=== PATIENT | male | born 1955 | race Caucasian/White ===

== ENCOUNTER 2017-11-17 22:56 | Inpatient (IN) | payer OTHER ==
[~2017-11-17] VITALS: Ht 170.2 cm; Wt 105.8 kg
[~2017-11-17 22:56] MED LIST: ADULT LOW DOSE81 MG PO; ATORVASTATIN CA80 MG PO; CIPRO500 MG PO; FENOFIBRATE134 MG PO; FLAGYL250 MG PO; FLOMAX0.4 MG PO; GLIMEPIRIDE2 MG PO; GLUCOPHAGE500 MG PO; LIPITOR40 MG PO; LISINOPRIL5 MG PO; OXYCODON-ACETA1 EAC2 PO
--- NOTE | 2017-11-18 04:14 | NUR ---
PATIENT ARRIVES TO ROOM 128 VIA STRETCHER FROM ER AT 0300. PT ARRIVES IN COMPANY WITH HIS AND DAUGHTER. PT ABLE TO STAND AND MOVE OVER TO BED WITHOUT DIFFICULTY. PT IS CURRENTLY IN AFLUTTER, HR 110-120s, AND ON A DILTIAZEM GTT AT 15 MG/HR. PT HAS NO KNOWN HISTORY OF AFIB/FLUTTER. DISCUSSED WITH PATIENT AT LENGTH WHAT THIS MEANS AND POTENTIAL REASONS FOR HIM HAVING THIS ARRHYTHMIA AT THIS TIME. PT'S ABDOMINAL AREA AND RIGHT GROIN ASSESSED AND NOTIED TO BE BRIGHT RED ACROSS RIGHT SIDE AND EVEN OVER TO LEFT SIDE OF ABDOMEN. HARD, PALPABLE MASS LIKE AREA FELT IN THE LOW LATERAL RIGHT ABDOMINAL AREA. IN PT'S GROIN AREA, OLD SCAR FROM PREVIOUS SURGERIES NOTED AND IN THE MIDDLE OF SCAR, A SMALL, ERASER TIP SIZE AREA NOTED TO BE OPEN WITH PURULENT DRAINAGE. PT STATES THIS IS A NEW FINDING AND THAT AREA WAS CLOSED THIS AM. A SMALL BLACK HOLE LIKE STRUCTURE NOTED IN THE MIDDLE OF THE OPENING, ALMOST LIKE A TRACT. PT STATES HE HAS HAD DRAINAGE OUT OF THIS AREA BEFORE, AND THEY KEEP AN EYE ON THIS AT HOME. PT ALSO NOTED TO BE RED IN HIS FACE AND FLUSHED. TEMP 99.4 AT THIS TIME. IVF STARTED AT 125 ML/HR. PT HAS REC'D IV ZOSYN AND HAS HAD BLOOD CULTURES X2 DRAWN IN ER. PRN DILAUDID IF NEEDED. PT NOW RESTING AND SLEEPING ON COUCH. PT VOIDS 400 ML YELLOW URINE. CONTINUE TO MONITOR.
--- NOTE | 2017-11-18 06:23 | NUR ---
DR. PARK IN ROOM TO SEE PATIENT. RIGHT WOUND CULTURED AND SENT TO LAB. REPEAT LABS DRAWN WELL. PT VERY PLEASANT AND TALKATIVE WITH DOCTOR. DILT GTT CONTINUES AT 15 MG/HR. PT REMAINS IN AFLUTTER.
--- NOTE | 2017-11-18 08:03 | NUR ---
PT AWAKE AND ALERT X4 LAYING IN BED WATCHING TV WITH AT BEDSIDE. PT DENIES PAIN, NAUSEA, AND SOB AT THIS TIME. IV SITES INTACT, NO REDNESS OR SWELLING NOTED, FLUIDS INFUSING EASILY. PT DILTIAZEM DRIP AT 15 MG/HR AT THIS TIME. VITALS WNL, RHYTHM IS A FLUTTER. PT DENIES ANY PALPITTIONS OR FEELINGS OF FLUTTERING IN CHEST.
--- NOTE | 2017-11-18 09:00 | NUR ---
PT DOING WELL. AM CARE. CHANGED LINENS
--- NOTE | 2017-11-18 09:24 | NUR ---
PT SITTING UP AT THE SIDE OF THE BED, DENIES PAIN, NAUSEA, AND SOB. PT ALERT AND ORIENTED X4. CALL LIGHT WITHIN REACH.
--- NOTE | 2017-11-18 10:30 | NUR ---
ENDY WIPEDOWN COMPLETED, CLEAN GOWN AND LINENS IN PLACE.
--- NOTE | 2017-11-18 11:00 | NUR ---
GAVE PT A SUGICAL WIPE DOWN.
--- NOTE | 2017-11-18 11:03 | NUR ---
PT LEFT CCU WITH HEAD OF DRAMA SRUTHI. IV DILTIAZEM RUNNING AT 11MG/HR PER THIRD RAIL INSTALLER CARMITA.
--- NOTE | 2017-11-18 12:21 | NUR ---
11/18/17 1221 Shahriar Martinez 1208 PT ARRIVED TO CCU/PACU AWAKE BUT SLIGHTLY DROWSY. PT TALKING WITH STAFF. IV LR RUNNING FREE. PER LUCAS MEJIA DILTIAZAM DISCONTINUED IN OR AT 1155 FOR STABLE HR. CURRENT HR 78, PT DENIES CHEST PAIN AND SOB. DENIES PAIN AND NAUSEA. DRESSING CDI, WOUND VAC IN PLACE.
--- NOTE | 2017-11-18 12:33 | CONS ---
[facility] [address], [place] [address] Signed DATE OF CONSULTATION: 11/18/2017 CONSULTATION REPORT CONSULTING PHYSICIAN: Esdras Santoyo MD PROBLEM: Recurrent right inguinal abscess. HISTORY OF PRESENT ILLNESS: This 62-year-old white man is from [place], [place] and is a patient of Dr. Robert Thompson. He is known to me having undergone operation on June 24, 2016 for what was thought to be incarcerated recurrent right inguinal hernia, but which proved to be in fact a large abscess of the right groin. He had undergone a right inguinal hernia repair by Dr. Bo Lobato two years prior to that with implantation of Prolene mesh. At the time of the operation I performed in 2015, he had infected and non-secured Prolene mesh, which was completely explanted. He had undergone radiation therapy for prostate carcinoma in [place], [place] by Dr. Magnus Amato with implantation of radioactive seeds for prostate cancer and at that time had a PSA of less than 1.0. After explantation of the mesh, wound care involved dominantly a wound VAC device, which allowed for healing. I saw him in followup and he had a slight amount of wound separation, but ultimately appeared to have healed well. The patient tells me he has had episodic minimal drainage from the incision over time, however. He recently began having swelling and pain once again. He presented to the emergency room at approximately 11:30 last night, was evaluated by Dr. Valles. He had 2 days of pain in the right groin with an erythematous lump noted. He incidentally was noted to have atrial flutter with heart rate into the 140s. A CT scan was performed, which showed a deep subcutaneous right lower abdominal fluid collection abutting the abdominal wall, but no soft tissue gas. There is a small fat containing right groin hernia without evidence of strangulation as well as incidental findings of gallstones and multiple cysts of the liver. He also had diverticula without diverticulitis. Given his atrial fibrillation and need for diltiazem for rate control, he was admitted to the service of Dr. Gupta and taken to the intensive care unit. It shows no evidence of myocardial infarction or other abnormality. His white count at presentation was only 9.1 with hematocrit of 39.5 with a platelet count 264,000. Chem profile was normal. Electronically Signed By: ESDRAS SANTOYO MD 11/18/17 1233 PATIENT NAME: DREW WHEATLEY CONSULTATION DATE OF : 59 REPORT #: [id number] PHYSICIAN: ESDRAS SANTOYO MD PCP: ROBERT THOMPSON MD REPORT IS CONFIDENTIAL AND NOT TO BE RELEASED WITHOUT AUTHORIZATION [facility] [address] [place], [place] [address] Signed The glucose was elevated to 144. Liver enzymes are normal. Troponin is less than 0.010. Coag studies were normal with an INR of 0.9, and urinalysis, which was normal. He did have blood/urine glucose of 1000, however. At present, the patient feels reasonably well. He has mild pain in the right groin area, actually lateral and superior to the previous incision. He has no complaints of nausea or dizziness. SOCIAL HISTORY: Lives in [facility]. He is accompanied by his . 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 PHYSICAL EXAMINATION: GENERAL: A pleasant white man, who is obese, but alert and oriented without sign of systemic toxicity. VITAL SIGNS: Temperature is 98.4, pulse 78, blood pressure 117/53. He is on room air and saturations are 92%. NECK: Trachea is midline. He has no jugular venous distention. HEART: He has no tachypnea. Heart rate is currently 82 and to me looks to be regular consistent with sinus rhythm. ABDOMEN: Soft and obese. In the right lower quadrant in the area superior and lateral to previous inguinal incision is erythematous skin cellulitic changes and tenderness. I detect no sign of necessitation of the wound. The genitalia are normal. CT scan is examined showing multiple cysts of the liver. Spleen is normal as is the stomach. There were multiple gallstones within the gallbladder as previously noted. Examination of the soft tissue of the abdominal wall shows a fluid collection and surrounding inflammatory changes of the soft tissue. The process appears to be outside the muscular layer. I do not see signs of continuity to internal organs, specifically the colon. ASSESSMENT: He has an abdominal wall abscess, which appears to be a recurrent problem from abscess and infected mesh from May 2016. I am quite certain that all of the mesh was explanted at the time of his initial operation in 2015. One wonders if there is some other foreign body to incite such an infection or perhaps residual bile burden (bile film) of the wound itself. His atrial flutter is now controlled. Thanks to the careful management of Dr. Gupta and he maintains a diltiazem drip at 15 mg an hour. I believe he is safe to take the operation to allow for drainage of the abscess. Indeed, the inflammatory process and abscess may have a lot to do with the onset of this arrhythmia. I have reviewed this with Dr. Gupta, who concurs. We will plan for operative management this morning. He has already been started on Zosyn (piperacillin). The risks of bleeding, infection, need for laparotomy, wound Electronically Signed By: ESDRAS SANTOYO MD 11/18/17 1233 PATIENT NAME: DREW WHEATLEY CONSULTATION DATE OF : 59 REPORT #: [id number] PHYSICIAN: ESDRAS SANTOYO MD PCP: ROBERT THOMPSON MD REPORT IS CONFIDENTIAL AND NOT TO BE RELEASED WITHOUT AUTHORIZATION [facility] [address] [facility] [place] [address] Signed closure, and of course recurrent problem reviewed with the patient and his . They understand and wished to proceed. MD SRIDHAR Cornell/MODL /[id number] cc: MD Robert Marrero MD Andrew L Bower, MD Copies: BORIS GUPTA MD, DANIEL C MD BOWER, ANDREW L MD ~ Electronically Signed By: ESDRAS SANTOYO MD 11/18/17 1233 PATIENT NAME: DREW WHEATLEY CONSULTATION DATE OF : 59 REPORT #: [id number] PHYSICIAN: ESDRAS SANTOYO MD PCP: ROBERT THOMPSON MD REPORT IS CONFIDENTIAL AND NOT TO BE RELEASED WITHOUT AUTHORIZATION
--- NOTE | 2017-11-18 12:53 | NUR ---
REPORT RECEIVED FROM PACU. PT AWAKE AND TALKING WITH FAMILY MEMBERS IN ROOM. VITAL SIGNS COMPLETED. PT STATES ABD SURGICAL DISCOMFORT "A DULL ACHE".
--- NOTE | 2017-11-18 13:24 | NUR ---
MIRELA FROM PHARMACY HERE TO TALK WITH PT ABOUT HOME MEDS. FAMILY IN ROOM.
[2017-11-18] MEDS ORDERED: FIBER500 MG PO (13:54)
--- NOTE | 2017-11-18 13:55 | NUR ---
Medications reconciled with patient interview. Per patient, the lisinopril is for renal protection, not blood pressure control
--- NOTE | 2017-11-18 14:15 | NUR ---
IV SITE INTACT, NO REDNESS OR SWELLING NOTED, PT DENIES PAIN AT THE SITE, FLUIDS INFUSE EASILY. PT C/O 3/10 DULL PAIN IN RT LOW QUAD OF ABD, 600 MG PO MOTRIN GIVEN. PT DENIES SOB AND NAUSEA. OMER WATER WELL. PT HAS FAMILY AND FRIENDS IN AT THE BEDSIDE VISITING. PT ALERT AND ORIENTED X4. HR STILL A-FLUTTER, RATE IS 70'S-90'S. WOUND VAC IN PLACE, DRESSING INTACT, SUCTION INTACT.
--- NOTE | 2017-11-18 18:00 | NUR ---
20 GAUGE IV STARTED IN RT FOREARM BY GEMA CRESPO. PT OMER WELL. PT ALERT AND ORIENTED X4, DENIES PAIN, NAUSEA, AND SOB.
--- NOTE | 2017-11-18 18:20 | NUR ---
DILTIAZEM DRIP RESTARTED AT 5MG/HR. PT ALERT AND ORIENTED X4. PT DENIES PAIN, NAUSEA, AND SOB.
--- NOTE | 2017-11-18 20:00 | NUR ---
SHIFT REPORT RECEIVED FROM CHERIE NIEVES. PT SLEEPING IN BED, AT BEDSIDE. CALLED AND SPOKE VIGNESH DR. PARK TO UPDATE HER THAT THE CADIZEM DIP WAS TURNED ON AT 1820. ALSO UPDATED HER THAT PT IS EATING AND RECEIVED ORDERS TO CHANGE ACCUCHECKS AND SLIDING SCALE FROM Q6 HOURS TO ACHS.
--- NOTE | 2017-11-18 20:30 | NUR ---
ASSESSMENT COMPLETED. PT IS ALERT/ORIENTED, PT'S AND DAUGHTER ARE AT BEDSIDE. REPORTS 4/10 PAIN IN RLQ WITH MOVEMENT, 600MG PO MOTRIN ADMINISTERED. ALERT/ORIENTED. LUNGS CLEAR, 2L O2 VIA NC. HR IREGULAR, REMAINS IN A.FLUTTER, HR 75-90'S, CARDIZEM DRIP CONTINUES AT 5MG/HR. BOWEL TONES ACTIVE, DENIES NAUSEA. SURGICAL SITE TO RLQ HAS WOUND VAC IN PLACE, DRESSING APPEARS INTACT, NO LEAKS NOTED, SCANT AMOUNT OF SEROSANGUINOUS DRAINAGE NOTED IN TUBING. CB, 1 UNIT SLIDING SCALE ADMINISTERED. SKIN APPEARS REDDEDNED FROM ABDOMEN UP TRUNK AND ON NECK AND FACE. IV'S PATENT, INFUSING WNL. PT DENIES NEEDS AT THIS TIME, WILL CONTINUE TO MONITOR.
--- NOTE | 2017-11-18 22:10 | NUR ---
IN TO START ZOSYN INFUSION, PT UP TO SIDE OF BED TO VOID USING URINAL. DENIES PAIN. WILL CONTINUE TO MONITOR.
--- NOTE | 2017-11-18 23:43 | NUR ---
PT'S SPO2 DESATURATED DOWN TO LOW 50'S WHILE SLEEPING, PT WAS HAVING APNIC EPISODE FOLLOWED BY LARGE GASP. WOKE PT UP AND ENCOURAGED HIM TO TAKE SOME DEEP BREATHS. SATURATIONS QUICKLY RETURNED TO HIGH 90'S. PT NOW UP TO VOID. WILL CONTINUE TO MONITOR.
--- NOTE | 2017-11-19 00:15 | NUR ---
ASSESSMENT COMPLETED, PT WOKE EASILY WHEN SPOKEN TO. DENIES PAIN AND NAUSEA. LUNGS REMAIN CLEAR, 2L O2 IN PLACE. HR REMAINS IRREGULAR RATE 80S-90S. BOWEL TONES ACTIVE. SURGICAL SITE DRESSING REMAINS INTACT WITH WOUND VAC IN PLACE, NO LEAKS NOTED, DRAINING SCANT AMOUNT OF SEROSANGUINOUS FLUID. IVF INFUSING WNL. PT DENIES NEEDS AT THIS TIME, WILL CONTINUE TO MONITOR.
--- NOTE | 2017-11-19 01:52 | NUR ---
PT SLEEPING, NO APPRENT DISTRESS. RESPIRATIONS EVEN AND UNLABORED, RR:14, SPO2: 100% ON 2L. HR:80S-90S. WILL CONINUE TO MONITOR.
--- NOTE | 2017-11-19 02:45 | NUR ---
PT SLEEPING AT THIS TIME, NO APPARENT DISTRESS. RESPIRATIONS ARE EVEN AND UNLABORED, RR:17, SPO2:100% ON 2L. HR: 80S-90S. WILL ALLOW FOR REST AND CONTINUE TO MONITOR.
--- NOTE | 2017-11-19 03:11 | NUR ---
PT HAD ANOTHER EPISODE WHERE HIS SATURATIONS DROPPED TO 45-50% BRIEFLY, THEN WITHIN A FEW SECONDS STARTED RETURNING INTO THE 90S. HR INCREASES TO 120-130 WHEN THIS HAPPENS AND THEN RETURNS TO 80S-90S AFTER.
--- NOTE | 2017-11-19 04:28 | NUR ---
PT SLEEPING, NO APPARENT DISRESS. RESPIRATIONS EVEN AND UNLABORED, RR:16 SPO2: 100% ON 2L. HR REMAINS IRREGULAR, HR:80-90S AT REST. BOWEL TONES ACTIVE. DRESSING TO RLQ REMAINS INTACT, NO LEAK NOTED IN WOUND VAC, DRAINAGE REMAINS SCANT AND SEROSANGUINOUS. IVF INFUSING WNL. WILL CONTINUE TO MONITOR.
--- NOTE | 2017-11-19 05:50 | NUR ---
IN TO HANG NEW BAG OF FLUIDS AND START ZOSYN INFUSION. PT SLEEPING, NO APPARENT DISTRESS. RESPIRATIONS EVEN AND UNLABORED, RR:16. WILL CONTINUE TO MONITOR.
--- NOTE | 2017-11-19 07:25 | EKG ---
[facility] [address] [facility] [place] [address] Signed Atrial flutter with variable AV block Nonspecific ST abnormality Abnormal ECG When compared with ECG of 17-NOV-2017 23:25, (Unconfirmed) Vent. rate has decreased BY [address] less elevated in Inferior leads Confirmed by BORIS PARK MD ([id number]) on 11/19/2017 7:25:46 AM Electronically Signed By: BORIS PARK MD 11/19/17 0725 PATIENT NAME: DREW WHEATLEY Electrocardiogram DATE OF : 59 PHYSICIAN: BORIS PARK MD REPORT #: [id number] REPORT IS CONFIDENTIAL AND NOT TO BE RELEASED WITHOUT AUTHORIZATION
--- NOTE | 2017-11-19 07:25 | EKG ---
[facility] [address] [facility] [place] [address] Signed Atrial flutter with 2:[address] elevation, consider inferior injury or acute infarct ACUTE [place] / STEMI Consider right ventricular involvement in acute inferior infarct Abnormal ECG When compared with ECG of 21-JUN-2016 18:24, Significant changes have occurred Confirmed by BORIS PARK MD ([id number]) on 11/19/2017 7:25:37 AM Electronically Signed By: BORIS PARK MD 11/19/17 0725 PATIENT NAME: DREW WHEATLEY Electrocardiogram DATE OF : 59 PHYSICIAN: BORIS PARK MD REPORT #: [id number] REPORT IS CONFIDENTIAL AND NOT TO BE RELEASED WITHOUT AUTHORIZATION
--- NOTE | 2017-11-19 08:02 | NUR ---
PT AWAKE AND ALERT SITTING UP IN BED VISITING WITH FAMILY AT BEDSIDE. PT DENIES PAIN, NAUSEA, AND SOB AT THIS TIME. PT ALERT AND ORIENTED X4. DILTIAZEM DRIP AT 5 MG/HR, HR STILL A-FLUTTER, RATE CONTROLED. ALL OTHER VITALS WNL.
--- NOTE | 2017-11-19 09:16 | NUR ---
DILTIAZEM DRIP TURNED OFF, PO DILTIAZEM GIVEN.
--- NOTE | 2017-11-19 09:41 | NUR ---
PT AMBULATED TO THE BATHROOM WITH STANDBY ASSIST. PT OMER AMBULATION WELL. ABLE TO BRUSH TEETH, WASH FACE, AND HAVE A BM. PT GOWN AND BED LINENS CHANGED. PT DENIES PAIN, NAUSEA, AND SOB AT THIS TIME, ALERT AND ORIENTED X4.
--- NOTE | 2017-11-19 10:50 | NUR ---
PT LAYING IN BED WATCHING TV, SPOUSE IS AT THE BEDSIDE. PT DENIES PAIN, NAUSEA, AND SOB AT THIS TIME. PT ALERT AND ORIENTED X4.
--- NOTE | 2017-11-19 12:05 | NUR ---
PT ABLE TO EAT 100% OF LUNCH. DENIES PAIN, NAUSEA, AND SOB AT THIS TIME. PT SITTING UP AT THE SIDE OF THE BED ALERT AND ORIENTED X4. IV SITES INTACT, NO REDNESS OR SWELLING NOTE, FLUIDS AND FLUSH INFUSE EASILY. SPOUSE AT THE BEDSIDE, OFFERED CAREGIVER TRAY FOR LUNCH AND BREAKFAST SHE REFUSED.
--- NOTE | 2017-11-19 13:50 | NUR ---
PT UP TO AMBULATE TO BATHROOM, ABLE TO HAVE BM, THEN BACK TO BED. PT SITTING ON SIDE OF BED, HR SITLL A-FLUTTER 90'S-120'S PT DENIES ANY SYMPTOMS, ALL OTHER VITALS WNL. PT DENIES NAUSEA, SOB, AND PAIN. PT COOPERATIVE AND ALERT AND ORIENTED X4.
--- NOTE | 2017-11-19 15:00 | OR ---
[facility] [address] [place], [place] [address] Signed DATE OF OPERATION: 11/18/2017 SURGEON: Esdras Santoyo MD PREOPERATIVE DIAGNOSES: 1. Recurrent right groin and right abdominal wall abscess. 2. New onset atrial flutter. 3. Diabetes mellitus. 4. Obesity. POSTOPERATIVE DIAGNOSES: 1. Recurrent right groin and right abdominal wall abscess. 2. New onset atrial flutter. 3. Diabetes mellitus. 4. Obesity. PROCEDURE: 1. Incision, drainage, and debridement of right lower abdominal wall abscess including below external oblique fascia (10 x 6 cm). 2. Placement of wound VAC device. ANESTHESIA: General endotracheal, Prudencio King CRNA. INDICATION: This 62-year-old white man was admitted to the hospital late last night after presenting to the emergency room with right lower abdominal wall abscess. He was noted concurrently to have new onset atrial flutter with a heart rate over 140, requiring a diltiazem drip. He was admitted by Dr. Gupta after conferring with me, who has expertly controlled the patient's atrial flutter with a diltiazem drip. In 2013, he underwent right inguinal hernia repair by Dr. Bo Lobato with implantation of Prolene mesh. In 2015, he was noted to have a firm mass in the area, which was initially thought to be possible recurrent inguinal hernia and under exploration was found to have abscess. The implanted Prolene mesh was infected and was completely explanted. At that time, drainage and wound care involved a wound VAC device, which allowed for resolution of the problem. The patient tells me he has had episodic purulent drainage from the medial aspect of the right groin incision and in the past 2 days increasing swelling lateral and superior to Electronically Signed By: ESDRAS SANTOYO MD 11/19/17 [facility] PATIENT NAME: DREW WHEATLEY OPERATIVE REPORT DATE OF : 59 REPORT #: [id number] PHYSICIAN: ESDRAS SANTOYO MD PCP: BETTY THOMPSON MD REPORT IS CONFIDENTIAL AND NOT TO BE RELEASED WITHOUT AUTHORIZATION [facility] [address] [place], [place] [address] Signed the previous groin incision. His presentation to the emergency room included a CT scan under the direction of Dr. Valles, which showed an abscess. He has been admitted, given intravenous antibiotic, piperacillin (Zosyn) and has had control of his atrial flutter and is now to undergo drainage of this abscess. He understands as does his the risks of bleeding, infection, need for elaborate wound care, and other unforeseen complications and wished to proceed. FINDINGS: The area that was most fluctuant was superior and lateral to the previous incision. An incision was made directly over this area. An impressively thick soft tissue rind was noted and ultimately it was found that the purulence emanated from the medial aspect of the previous incision. It emanated from tissue beneath the external oblique fascia. The external oblique fascia was incised down to essentially the pubic tubercle for complete opening of the wound. There was no sign of foreign body or retained mesh or any other issue there. Cord structures medially were identified as normal otherwise. It is notable that the patient has had radioactive seed implant therapy for prostate cancer and the extent to which this has contributed to the problem is uncertain. My conclusion, debridement of necrotic tissue as well as drainage of abscess has been accomplished. Wound cultures have been obtained and a wound VAC dressing was deemed most appropriate for management of the wound going forward. DESCRIPTION OF PROCEDURE: The patient was brought to the operating room, given a general endotracheal anesthetic. A diltiazem drip was in place and was variably weaned during the case by the missile pad mechanic. Preoperative Zosyn had been given within half hour of incision. The entire abdomen including the lower abdomen was prepared with chlorhexidine solution and draped sterilely. Photographs were taken. The fluctuant mass was lateral and superior to the previous groin incision and direct incision was made over that area. Dissection was carried through the subcutaneous tissue where a very thick rind of inflammatory tissue was encountered. It was ultimately incised more fully, allowing for egress of copious amounts of purulent material. Gram stains were obtained. The gelatinous and somewhat necrotic tissue at the base of the wound was debrided and more fully interrogated. Ultimately, the incision was made to be in continuity with the previous groin incision. Not mentioned previously was the previously "healed" groin incision had a sinus in the medial aspect, that easily drained purulent material. This incision was taken to that point. It was clear that purulent material emanated from beneath the external oblique fascia. This was carefully incised with all due care, ultimately getting to the base of the wound, which had a gelatinous exuberant granulating base with purulence. Especial care was taken to avoid too deep of transection into the iliac vessels. Dissection was not below the inguinal ligament proper. Ultimately, the cord structures were encountered medially, which appeared reasonably normal. Irrigation and Electronically Signed By: ESDRAS SANTOYO MD 11/19/17 1500 PATIENT NAME: DREW WHEATLEY OPERATIVE REPORT DATE OF : 59 REPORT #: [id number] PHYSICIAN: ESDRAS SANTOYO MD PCP: BETTY THOMPSON MD REPORT IS CONFIDENTIAL AND NOT TO BE RELEASED WITHOUT AUTHORIZATION [facility] [address] [place] [address] Signed debridement were undertaken more fully and ultimately it was deemed most advisable to place a wound VAC. A black wound sponge was fitted to the site and the adherent dressing applied and wound VAC set up to 125 mm constant suction. This provided for optimal wound management at this point. The patient was ultimately extubated and transported back to the intensive care unit for further management. Sponge, needle, and counts reported as correct x3. Edsras Santoyo MD JM/MODL /[id number] cc: MD Jane Valdovinos MD Andrew L Bower, MD Copies: BETTY THOMPSON MD, KELLY DEAN MD BOWER, ANDREW L MD ~ Electronically Signed By: ESDRAS SANTOYO MD 11/19/17 1500 PATIENT NAME: DREW WHEATLEY OPERATIVE REPORT DATE OF : 59 REPORT #: [id number] PHYSICIAN: ESDRAS SANTOYO MD PCP: BETTY THOMPSON MD REPORT IS CONFIDENTIAL AND NOT TO BE RELEASED WITHOUT AUTHORIZATION
--- NOTE | 2017-11-19 19:20 | NUR ---
SHIFT REPORT RECEIVED FROM CHERIE NIEVES. PT IS CURRENTLY SITTING UP IN BED, AT BEDSIDE. IV'S SL. RA. CALL LIGHT IS WITHIN REACH.
--- NOTE | 2017-11-19 20:44 | NUR ---
ASSESSMENT COMPLETED. PT IS ALERT/ORIENTED. REPORTS 4/10 DULL PAIN TO RLQ WITH MOVEMENT, 600MG PO MOTRIN ADMINISTERED. LUNGS CLEAR, RA. HR IRREGULAR, TELE #7, REMAINS IN A.FLUTTER. BOWEL TONES ACTIVE, ABDOMEN ROUND AND SOFT, DENIES NAUSEA. SURGICAL SITE TO RIGHT LOWER QUADRANT HAS WOUND VAC IN PLACE, DRESSING IS INTACT, NO LEAKS NOTED, DRAINING SCANT AMOUNT OF SEROSANGUINOUS FLUID. REDNESS TO ABDOMEN, TRUNK, NECK/FACE GREATLY IMPROVED FROM YESTERDAY. REDNESS TO FLANKS IMPROVED, BLANCHABLE. IV SITES X2 BOTH SL AND PATENT. DISCUSSED WITH PT ABOUT USING CPAP TONIGHT, PT APPEARS MOTIVATED ABOUT PLAN OF CARE AND STATES THAT HE WANTS TO HAVE SLEEP STUDY DONE SO HE CAN GET HIS OWN CPAP. PT ALSO TALKS ABOUT MONITORING HIS BLOOD SUGARS AT HOME AND SEEMS MOTIVATED TO DO SO. CBG TONIGHT WAS 116 AND DID NOT REQUIRE ANY SLIDING SCALE COVERAGE. PT DENIES FURTHER REQUESTS AT THIS TIME, WILL CONTINUE TO MONITOR.
--- NOTE | 2017-11-19 22:42 | NUR ---
PT APPEARS TO BE SLEEPING AT THIS TIME, NO APPARENT DISTRESS. RESPIRATIONS EVEN AND UNLABORED, RR:18. TELE #7, HR:95-100. WILL ALLOW FOR REST AND CONTINUE TO MONITOR.
--- NOTE | 2017-11-19 23:30 | NUR ---
REPORT GIVEN TO PRODUCE PRODUCTION TEAM MEMBER JACY. PT AND HIS BELONGINGS MOVED TO [facility] ROOM 122.
--- NOTE | 2017-11-19 23:45 | NUR ---
PATIENT ARRIVED TO THE FLOOR FROM CCU. HIS IS WITH HIM. HE IS AAOX3. NO PAIN AT THIS TIME. LUNGS ARE CLEAR. ABD IS ROUND, NONTERNDER, AND BOWEL SOUNDS ARE ACTIVE. DRESSING ON RLQ IS INTACT. WOUND VAC IN PLACE, NO LEAKS. IV ABX INFUSING AT THIS TIME, SITE WNL. PATIENT HAS TELE IN PLACE. HIS SKIN IS FLUSHED AND RED OVER HIS FACE, ABD, AND HIS BACK. HE IS ALSO DIAPHORETIC, REPORTS FEELING WARM. ROOM TEMP TURNED DOWN. PATIENT DENIES ANY CONCERNS AT THIS TIME. RT CALLED TO SET UP CPAP.
--- NOTE | 2017-11-20 01:57 | NUR ---
PATIENT'S HR HAS BEEN CONSISTENTLY 110-120 FOR THE LAST HOUR; CCU RN NOTIFIED THIS RN. SPOKE WITH . NO NEW ORDERS, WILL CONTINUE TO MONITOR.
--- NOTE | 2017-11-20 03:08 | NUR ---
PATIENT'S IV ABX FINISHED. HE IS NOW SL. PATIENT UP TO BEDSIDE TO USE THE URNAL. HE APPEARS STEADY ON HIS FEET. OUTPUT QS. PATIENT REPORTS MINIMAL PAIN ONLY WITH MOVEMENT. HE DENIES ANY NEEDS. ASSISTED HIM WITH CPAP MASK ONCE HE WAS BACK INTO THE BED.
--- NOTE | 2017-11-20 05:46 | NUR ---
PATIENT ARRIVED FROM THE UNIT SHORTLY BEFORE MIDNIGHT. RT SET UP THE CPAP AND PROVIDED SOME EDUCATION, PATIENT WAS AGREEABLE TO USING THE CPAP AND TOLERATED IT WELL. URINE OUTPUT QS. WOUND VAC INTACT. TELE #7, HR RANGES 90'S-130'S IN A.FLUTTER. MD AWARE. PAIN IN RLQ HAS BEEN MINIMAL AND MOSTLY WITH MOVEMENT, NO PRN MEDS GIVEN.
--- NOTE | 2017-11-20 06:00 | NUR ---
IV ABX STARTED. PATIENT STATES HE WOKE UP FEELING BETTER THAN HE HAD THE PREVIOUSLY. HE DENIES ANY PAIN AT THIS TIME. WOUND VAC INTACT. PROVIDED MENU AND MEAL OPTIONS TO BOTH PATIENT AND HIS .
--- NOTE | 2017-11-20 07:39 | NUR ---
TOOK REPORT FROM DAY SHIFT. PATIENT NEEED TO GO ON CPAP LAST NIGHT. PATIENT HAVING NO PAIN AND ALERT AND ORIENTED, AT BEDSIDE. PATIENT AWAITING BREAKFAST.
--- NOTE | 2017-11-20 07:46 | NUR ---
PATIENT IN BED HANDS AND FACE WASHED. PATIENT STATES THAT HE WOULD LIKE TO SHOWER TODAY. PATIENT REFFUSED TO SIT UP IN CHAIR FOR BREAKFAST. PATIENT SITTING UP STRAIGHT WITH BREAKFAST TRAY IN FRONT OF HIM. FRESH ICE WATER GIVEN. CALL BUTTON IN REACH. IN ROOM. RT IN ROOM TALKING TO PATIENT. NO OTHER NEEDS AT THIS TIME.
--- NOTE | 2017-11-20 10:22 | NUR ---
AFTER TALKING WITH DR SANTOYO, FORMS FOR WOUND VAC FOR PT TO GO HOME ON LEFT ON CHART DISCUSSED WITH DR SANTOYO TO FILL OUT SO WE CAN GET INSURANCE AUTH.
--- NOTE | 2017-11-20 10:42 | NUR ---
PATIENT SITTING UP IN BED, IN A GOOD MOOD. . PATIENT REFUSED SCD'S. IN ROOM. RN IN ROOM ADMINISTERING MEDICATION. CALL LIGHT IN REACH. NO OTHER NEEDS AT THIS TIME.
--- NOTE | 2017-11-20 11:03 | NUR ---
JUST SPOKE WITH PATIENT'S DAUGHTER ABOUT HOW HE IS DOING WHICH IS WELL AND THEN PUT HER ON THE PHONE WITH SHE SHE COULD EXPLAIN THE RESLTS OF THE ECHO. PATIENT HAS ONE CONTINOUS IV RUNING IN THE LEFT HAND, WHICH IS RUNNING FINE. THE SECOND IS ALSO A 20G IV THAT IS SALINE LOCKED AND FLUSHES EASILY IN THE RIGHT FOREARM. PATIENT WILL BE SHOWERING SOON HIS IV ANTIBIOTIC IS FINISHED.
--- NOTE | 2017-11-20 12:57 | NUR ---
PATIENT UP IN SHOWER, ASSISTING. RN IN ROOM. FRESH ICE WATER AT BEDSIDE TABLE. NO OTHER NEEDS AT THIS TIME.
--- NOTE | 2017-11-20 13:03 | NUR ---
PT LAYING IN BED-ALERT, ORIENTED AND SUPPORTED BY HIS YORDAN. BOTH VERY PLEASANT, PT RATHER COMPOSED FOR JUST DISCOVERING THE CHANGES IN HEALTH HE HAS. HE SEEMS TO BE DEALING APPROPRIATELY WITH NEWLY DIAGNOSED HEART CONDITION AND INFECTION THAT INIATIALLY BROUGHT HIM IN. BOTH EXPRESSED GREAT SATISFACTION WITH CARE THEY HAVE RECEIVED HERE AT [facility]. PT REQUESTED PRAYER, WILL FOLLOW NEEDED
--- NOTE | 2017-11-20 13:46 | NUR ---
PATIENT RESTING IN BED. FRESH ICE WATER AT BEDSIDE. CALL LIGHT IN REACH. NO OTHER NEEDS AT THIS TIME. PATIENT RATES PAIN AT 0 OUT OF 10.
--- NOTE | 2017-11-20 18:31 | NUR ---
PATIENT RESTING SITTING UP IN BED. IN ROOM. PATIENT STATED PAIN LEVEL WAS A 0 OUT OF 10. FRESH ICE WATER AT BEDSIDE TABLE. CALL LIGHT IN REACH. NO OTHER NEEDS AT THIS TIME.
--- NOTE | 2017-11-20 19:29 | NUR ---
IN ROOM FOR REPORT, PT IS AWAKE IN BED AND CALL LIGHT IS WITHIN REACH.
--- NOTE | 2017-11-20 22:35 | NUR ---
IN ROOM TO ASSESS PT AND ADMINISTER ZOSYN. PT IS ON BIPAP AND TELE #7 WITH AN IRREGULAR RATE RANGING FROM 80'S TO THE HIGHEST AT 140. WOUND VAC IS ON CONTINUOUS AND HAS NO LEAKS. PT DENIES NEEDS AT THIS TIME.
--- NOTE | 2017-11-21 00:05 | NUR ---
PT IS RESTING WITH EYES CLOSED, BIPAP IN PLACE. CALL LIGHT IS WITHIN REACH.
--- NOTE | 2017-11-21 01:19 | NUR ---
PT IS RESTING WITH EYES CLOSED, RESPIRATIONS ARE EVEN AND NONLABORED. CALL LIGHT IS WITHIN REACH.
--- NOTE | 2017-11-21 03:15 | NUR ---
WOKE PT TO GIVE MEDICATION, HE IS AWAKE IN BED AT THIS TIME, HE HAS NO COMPLAINTS OF PAIN AND DENIES NEEDS.
--- NOTE | 2017-11-21 05:42 | NUR ---
PT SLEPT WELL THROUGH THE NIGHT, HE REMOVED CPAP PART WAY THROUGH. HE IS ON TELE #7 AND HR BETWEEN UPPER 70'S AND 140'S. WOUND VAC IN PLACE IN RT GROIN ON CONTINUOUS SUCTION. PT IS SL BETWEEN ABX. PT DENIES ANY PAIN.
--- NOTE | 2017-11-21 05:51 | NUR ---
IN ROOM TO ADMINISTER ZOSYN, PT DENIES NEEDS AT THIS TIME.
--- NOTE | 2017-11-21 08:47 | NUR ---
PT AWAKE DURING BEDSIDE SHIFT REPORT. REPORT RECEIVED FROM REBEKAH CRESPO. WHITE BOARD UPDATED. WOUND VAC IN PLACE ON RLQ. SUCTION WORKING APPROPRIATELY. FSBS 125. NO INSULIN COVERAGE NEEDED. PATIENT ASSISTED UP TO CHAIR FOR BREAKFAST. ATE 100% OF BREAKFAST. CALL LIGHT WITHIN REACH.
--- NOTE | 2017-11-21 09:17 | NUR ---
PATIENT SITTING UP IN BEDSIDE RECLINER. ASSISTED PATIENT TO WASH HANDS AND FACE WITH WARM WASH CLOTH. MANDY GONZALEZ DISCUSSED WITH PATIENT BATHING OPTIIONS, PATIENT DECIDED TO WASH UP WITH BED BATH WIPES LATER. FRESH ICE WATER ON BEDSIDE TABLE, CALL LIGHT IN REACH, NO OTHER NEEDS AT THIS TIME.
--- NOTE | 2017-11-21 09:51 | NUR ---
FAXED [facility] FORM (FILLED OUT BY DR SANTOYO), FACESHEET, ER NOTES, H AND P, PROG NOTES, IMAGING, AND LABS TO [facility] AFTER TALKING WITH TERRA BRADY [facility] REP. RECIEVED FAX CONFIRMATION.
--- NOTE | 2017-11-21 10:00 | NUR ---
PATIENT UP TO BATHROOM WITH RN ASSIT TO WASH SELF UP AND PUT ON CLEAN GOWN.
--- NOTE | 2017-11-21 10:48 | NUR ---
PATIENT IN BED. DR. MONTILLA IN ROOM TO SEE PATIENT.
--- NOTE | 2017-11-21 11:24 | NUR ---
PT UP TO CHAIR FOR LUNCH. SALINE LOCKED. WOUND VAC IN PLACE.
--- NOTE | 2017-11-21 13:22 | NUR ---
PATIENT STATES HE HAD A BM IN THE TOILET AND FLUSHED BUT [employer] DID NOT SEE IT.
--- NOTE | 2017-11-21 13:23 | NUR ---
PATIENT RESTING IN BED. FRESH ICE WATER ON BEDSIDE, CALL LIGHT IN REACH, NO OTHER NEEDS AT THIS TIME.
--- NOTE | 2017-11-21 13:36 | NUR ---
PT SITTING IN CHAIR, ALERT AND ORIENTED. HE STATED RIGHT OFF THAT HE HAS SOME BAD NEWS-HE WAS HOPING TO BE DC'D TODAY. THAT IS NOT THE CASE, HIS HEART IS STILL BEATING TOO FAST, DR MONTILLA CONCERNED AND FEELS ANOTHER DAY OR TWO WOULD BE TO HIS ADVANTAGE. THE GOAL IS TO GET HIS HEART BEATING AT A MORE NORMAL RATE. HE STILL WAS IN GOOD HUMOR. REQUESTED PRAYER, WILL FOLLOW NEEDED
--- NOTE | 2017-11-21 13:53 | NUR ---
madeleine, wound care nurse, changing wound vac dressing now. leads replaced on telemetry as one was off. walked patient 2 laps in med surg per md request. HR 132 on tele 7 while walking.
--- NOTE | 2017-11-21 14:41 | NUR ---
RAMY FINISHED WOUND VAC DRESSING CHANGE. NEXT DRESSING CHANGE WILL BE MONDAY. IF PATIENT DISCHARGED BEFORE MONDAY, DYNAMOMETER TUNER TO MAKE APPOINTMENT WITH DAY SURGERY FOR NEXT DRESSING CHANGE.
--- NOTE | 2017-11-21 15:57 | NUR ---
NUZHAT 1445: PER DR. SANTOYO'S REQUEST WOUND VAC DRESSING CHANGE DONE AFTER VAC APPLICATION DONE Monday11/18/17. WOUND VAC DRESSING APPEARS IN TACT AND APPROXIMATELY 250ML BRIGHT RED DRAINAGE NOTED TO INPATIENT WOUND VAC CANISTER. DRESSING IS CAREFULLY REMOVED USING ADHESIVE REMOVER AND WOUND CLEANSER AND NORMAL SALINE TO MOISTEN SPONGE. PATIENT REPORTS INCREASED DISCOMFORT WITH SPONGE REMOVAL. SMALL AMOUNT OF BLEEDING IS NOTED FROM THE WOUND ONCE THE DRESSING IS REMOVED. SEE COMPLEX WOUND INTERVENTIONS FOR WOUND MEASUREMENTS. WOUND APPEARS ENTIRELY BRIGHT RED, GRANULATION TISSUE. ADAPTIC CONTACT LAYER APPLIED TO BASE OF WOUND PRIOR TO SPONGE BEING CUT TO FIT AND BEING APPLIED. DRESSING CHANGE DONE IN ACCORDANCE WITH [facility] WOUND VAC RECOMMENDATIONS. SMALL BRIDGE CREATED FOR TRAC PAD APPLICATION JUST SUPERIOR TO THE WOUND. WOUND VAC DRAPE IS APPLIED TO ALL VIOLET-WOUND SKIN WHERE SPONGE WILL CONTACT. TUBING IS CONNECTED TO CANISTER AND VAC IS TURNED ON. WOUND VAC DRAPE AND SPONGE SUCK NICELY INTO THE WOUND AND NO LEAKS ARE NOTED. PATIENT WILL BE DUE FOR THE NEXT DRESSING CHANGE ON MONDAY OR SOONER IF LEAKS ARE NOTED OR PROBLEMS ARISE. PATIENT TOLERATED THE ENTIRE DRESSING CHANGE WELL. PATIENT TRANSFERS HIMSELF TO THE RECLINER ONCE THE DRESSING CHANGE IS COMPLETE AND CALL LIGHT IS W/IN REACH.
--- NOTE | 2017-11-21 17:13 | NUR ---
PATIENT SITTING UP IN BEDSIDE RECLINER EATING DINNER. PATIENT STATES PAIN LEVEL IS A 0 OUT OF 10. FRESH ICE WATER ON BEDSIDE TABLE. CALL LIGHT IN REACH. NO OTHER NEEDS AT THIS TIME.
--- NOTE | 2017-11-21 18:18 | NUR ---
NO ACCU CHECKS. WOUND VAC RLQ CHANGED TODAY BY RAMY WOUND VAC NURSE. NEXT WOUND VAC CHANGE WILL BE MONDAY-- MAKE APPT WITH DAY SURGERY TO HAVE IT CHANGED IF DISCHARGED BEFORE THEN. SBA. TELE 7. CARDIZEM AND METOPROLOL FOR A-FLUTTER. ABX CHANGED TO DYNAPEN PO. SALINE LOCKED.
--- NOTE | 2017-11-21 19:07 | NUR ---
PT IS AWAK IN THE CHAIR, AND HAS VISITORS IN THE ROOM. PT DENIES NEEDS AT THIS TIME AND CALL LIGHT IS WITHIN REACH.
--- NOTE | 2017-11-21 23:30 | NUR ---
WAS NOTIFIED THAT PT'S HR JUMPED TO 109. PT STATES HE WAS JUST UP USING THE BATHROOM. PT IS BACK IN BED AT THIS TIME AND WAS GIVEN LOPRESSOR. PT STATES HE FEELS FINE. REMOVED 2ND IV IN PT'S LEFT HAND D/T PAIN. PT'S IV IN RT AC FLUSHES GREAT AND CAUSES NO DISCOMFORT. PT DENIES FURTHER NEEDS AT THIS TIME.
--- NOTE | 2017-11-21 23:58 | NUR ---
PT REFUSED CPAP TONIGHT.
--- NOTE | 2017-11-22 00:59 | NUR ---
REPLACED TELE LEADS, PT DENIES NEEDS AT THIS TIME.
--- NOTE | 2017-11-22 03:32 | NUR ---
PT IS RESTING WITH EYES CLOSED, RESPIRATIONS EVEN AND NONLABORED. CALL LIGHT IS WITHIN REACH.
--- NOTE | 2017-11-22 04:37 | NUR ---
PT IS UP TO THE RESTROOM AT THIS TIME, HR ON TELE WENT UP TO 111 MOMENTARILY AND IS FLUCTUATING BACK TO UPPER 90'S. WILL CONTINUE TO MONITOR.
--- NOTE | 2017-11-22 04:58 | NUR ---
PT REFUSED CPAP THROUGHT THE NIGHT. HE IS ON TELE #7 AND HIS HR HAS BEEN IN THE 60'S UP TO 111 WITH TRIPS TO THE BATHROOM. HE IS RECEIVING AN INCREASED DOSE OF CARDIZEM ALONG WITH THE ADDITION OF METOPROLOL. HIS WOUND VAC WAS CHANGED 11-21-17 AND WILL NEED TO BE CHANGED AGAIN 11-24-17. THE VAC IS WORKING FINE WITHOUT LEAKS. HE IS INDEPENDENT IN THE ROOM AND HAS NO COMPLAINTS OF PAIN. HE IS ON AN ADA DIET AND IS NO LONGER REQUIRING ACHS BS CHECKS.
--- NOTE | 2017-11-22 06:03 | NUR ---
IN ROOM TO TAKE VS AND GIVE LOPRESSOR. FRESH WATER AT BEDSIDE, PT DENIES FURTHER NEEDS AT THIS TIME.
--- NOTE | 2017-11-22 08:02 | NUR ---
PATIENT ALERT AND ORIENTED THIS MORNING AND ALREADY GIVEN HIMSELF A SPONGE BATH IN THE RESTROOM. WOUND VAC TO THE RIGHT GROIN INTACT AND FUNCTIONING. PATIENT UP IN THE RECLINER. NO LONGER DOING BLOOD SUGARS, BREAKFAST TRAY SET UP FOR USE. PATIENT HAD NO QUESTIONS OR COMPLAINTS. LUNGS CLEAR AND BOWEL TONES ACTIVE.
--- NOTE | 2017-11-22 08:19 | NUR ---
PATIENT SITTING UP IN BEDSIDE RECLINER. PATIENT STATES HE ALREADY "SPONGED OFF" THIS MORNING AND BRUSHED HIS TEETH. FRESH ICE WATER AT BEDSIDE TABLE. CALL LIGHT IN REACH. NO OTHER NEEDS AT THIS TIME.
--- NOTE | 2017-11-22 09:58 | NUR ---
PATIENT RESTING IN BED. PATIENT STATES PAIN LEVEL IS 0 OUT OF 10. CALL LIGHT IN REACH. FRESH ICE WATER AT BEDSIDE TABLE. NO OTHER NEEDS AT THIS TIME.
--- NOTE | 2017-11-22 10:06 | NUR ---
PATIENT ATE A GOOD BREAKFAST AND IS CURRENTLY IN BED WATCHING TV. AM MEDS PASSED BETWEEN 9AM-10AM.
--- NOTE | 2017-11-22 12:20 | NUR ---
PATIENT RESTING IN BED WATCHING TV. CALL BUTTON IN HAND. FRESH ICE WATER GIVEN. PATIENT STATES THAT HE WAS HOPING TO GO HOME TODAY. NO OTHER NEEDS AT THIS TIME.
--- NOTE | 2017-11-22 12:41 | NUR ---
PT RESTING IN BED. NO COMPLAINTS. REPORTS NO PAIN, OR NAUSEA. PT ALERT AND ORIENTED V/S STABLE. PT REPORTS UNDERSTANDING OF LOPRESSOR MEDICATION.
--- NOTE | 2017-11-22 12:50 | NUR ---
CPAP ALARM SOUNDING. RT NOTIFIED. SETTINGS AJSUTED. NO NEW RESULTS. ALARM SOUNDED AGAIN DUE TO PT LONG PERIODS OF APNEA. RT INFORMED. CHANGED SETTINGS TO BIPAP MODE. PT APPEARS TO BE SLEEPING COMFORTABLY. ALARM NO LONGER SOUNDS.
--- NOTE | 2017-11-22 13:51 | NUR ---
PATIENT SITTING UP IN BEDSIDE RECLINER. PATIENT STATED HE WAS GETTING "STIR CRAZY" AND WANTED TO WALK AROUND SOME MORE. FRESH ICE WATER AT BEDSIDE TABLE. CALL LIGHT IN REACH. DOCTOR IN ROOM EXAMINING PATIENT. NO OTHER NEEDS AT THIS TIME.
--- NOTE | 2017-11-22 14:38 | NUR ---
INFORMED PT OF THE FACT THAT I RECIEVED A PHONE CALL TODAY WITH AUTHORIZATION FROM Jarrell FROM [facility] FOR THE WOUND VAC. HAD MATERIALS MANAGEMENT BRING THE OUTPT WOUND VAC TO MY OFFICE. ALSO INFORMED DR SANTOYO THE WOUND VAC IS HERE.AND AUTHED
--- NOTE | 2017-11-22 15:36 | NUR ---
PATIENT RESTING IN BED WITH EYES CLOSED. FRESH ICE WATER AT BEDSIDE TABLE. CALL LIGHT IN REACH. NO OTHER NEEDS AT THIS TIME.
--- NOTE | 2017-11-22 16:02 | NUR ---
WOUND VAC MACHINE CHANGED OUT DUE TO CORD ISSUES OF OLD MACHINE.
--- NOTE | 2017-11-22 17:54 | NUR ---
VITALS TAKEN AFTER EXERCISE. PATIENT HAD RESTED APPROX. 5-10 MINUTES AFTER WALKING HALLWAYS BEFORE VITALS WERE TAKEN.
--- NOTE | 2017-11-22 17:57 | NUR ---
PATIENT RESTING IN BED. PATIENT STATED HE HAD A BM AND URINE ELIMINATION IN THE BATHROOM, BUT URINE WAS NOT CAUGHT BY HAT. PATIENT STATES PAIN LEVEL IS AT 0 OUT OF 10. FRESH ICE WATER AT BED SIDE. CALL LIGHT IN REACH. NO OTHER NEEDS AT THIS TIME.
--- NOTE | 2017-11-22 18:55 | NUR ---
PT AMBUALTING HALLS INDEPENDENTLY MULTIPLE TIMES, WOUND VAC MACHINE CHANGED OUT DUE TO ELECTRICAL CORD BREAKING TODAY, DRAINAGE RECORDED, 250ML. PT HAS REPORTED NO PAIN OVER SHIFT. HE IS TOLERATING REGULAR ADA DIET WELL, NO NAUSEA. RLQ SITE REDNESS IMPROVED. PT HAD BM TODAY, VOIDING QUANTITIY SUFFICIENT. V/S STABLE
--- NOTE | 2017-11-22 19:53 | NUR ---
RECEIVED BEDSIDE REPORT FROM DAY SHIFT RN. PT IS ON TELE #7 IN AFLUTTER. HEART RATE IS 93. WOUND VAC ON RLQ INTACT AND FUNCTIONING WELL. IS AT BEDSIDE. SL IN RIGHT FOREARM. REPORTS NO NEEDS AT THIS TIME. RESPITORY RATE WNL. CALL LIGHT WITHIN REACH.
--- NOTE | 2017-11-22 21:49 | NUR ---
I&OS DONE AND CHARTED. PT NEEDS NOTHING ELSE AT THIS TIME. CALL LIGHT AND BEDSIDE TABLE WITHIN REACH.
--- NOTE | 2017-11-22 21:50 | NUR ---
ASSESSMENT AND MED PASS COMPLETE. BOWEL TONES ARE HYPOACTIVE. PT REPORTS NO N/V. REPORTS NO PAIN AT THIS TIME. WOUND VAC DRESSING IS CLEAN AND INTACT. SMALL AMOUNT OF DRAINAGE IS SEROSANGUINEOUS. LUNGS ARE CLEAR THROUGHOUT. CMS INTACT. PULSES +2. CALL LIGHT WITHIN REACH. REPORTS NO OTHER NEEDS AT THIS TIME.
--- NOTE | 2017-11-23 01:00 | NUR ---
CPAP MACHINE ALARMING. RT NOTIFIED. CHANGED SETTINGS. NO CHANGES. CPAP STILL ALARMING DUE TO PT EXTENDED PERIODS OF APNEA. RT NOTIFIED AGAIN. SETTINGS CHANGED TO BIPAP. NO FURTHER PROBLEMS. CALL LIGHT WITHIN REACH.
--- NOTE | 2017-11-23 04:23 | NUR ---
PT APPEARS TO BE SLEEPING. PT REMOVED BIPAP. RR 16 AND SHALLOW. CALL LIGHT WITHIN REACH
--- NOTE | 2017-11-23 06:19 | NUR ---
PT SLEPT THROUGHOUT THE NIGHT. BIPAP USED UNTIL 0230. ON TELE #7. INDEPENDENT IN ROOM. WOUND VAC ON . SMALL AMOUNT OF SEROSANGUENOUS DRAINAGE. DRESSING CHAGE DUE MONDAY. PT ON PENICILLIN. PT SL IN RIGHT FOREARM. PT IN A FLUTTER. HR BETWEEN 60-120 THIS SHIFT. PT ON CARDIZEM AND METOPROLOL. POS DC TODAY.
--- NOTE | 2017-11-23 08:23 | NUR ---
PT TACHYCARDIC, RESTING IN CHAIR. PT INSTRUCTED TO REST FOR NOW, TRY TO LIMIT ACTIVITY. 50 MG PO METOPROLOL GIVEN. MD NOTIFIED, NO NEW ORDERS AT THSI TIME. WILL CONTINUE TO MONITOR.
--- NOTE | 2017-11-23 08:58 | NUR ---
PATIENT SITTING IN CHAIR, PATIENT VERY PLEASANT TO TALK TO. CALL LIGHT IN REACH. NO OTHER NEEDS AT THIS TIME.
--- NOTE | 2017-11-23 09:46 | NUR ---
PT CONTINUES TO BE TACHYCARDIC, HR BETWEEN 110'S-130'S. NEW ORDER FOR METOPROLOL 50 MG IN ADDITION TO MORNING DOSE. BP 122/72, PT DENIES DIZZINESS. 50 MG PO METOPROLOL GIVEN. DISCUSSED WITH PT, EDUCATED ON GOAL OF MEDICATION AND SIDE EFFECTS. PT VERBALIZED UNDERSTANDING. PT DENIES OTHER NEEDS AT THIS TIME. WILL CONTINUE TO MONITOR.
--- NOTE | 2017-11-23 10:56 | NUR ---
PATIENT RELAXING IN BED, VITALS AND I/OS DONE. CALL LIGHT IN REACH.
--- NOTE | 2017-11-23 13:20 | NUR ---
PT SITTING IN CHAIR. PT PREPARING TO WALK IN [place], PT INDEPENDENT. TELEMETRY #7, TACHYCARDIC, UP TO 130'S WHILE WALKING. PT DENIES OTHER NEEDS AT THIS TIME.
--- NOTE | 2017-11-23 15:35 | NUR ---
PATIENT RELAXING IN BED. PATIENLTY WAITING TO SEE DR. NEGRON AND I/OS DONE. CALL LIGHT IN REACH.
--- NOTE | 2017-11-23 18:23 | NUR ---
PT TACHYCARDIC THIS MORNING, METOPROLOL DOSE INCREASED, HR 90-100'S AT REST, UP TO 130'S WITH ACTIVITY. PT ON ROOM AIR, LUNG SOUNDS CLEAR. PT TOLERATING ADA DIET, BOWEL TONES ACTIVE, DENIES NAUSEA. PT WITH WOUND VAC TO RIGHT LOWER QUADRANT, IN WORKING ORDER, NO SIGNS OF LEAK. PT INDEPENDENT IN ROOM AND HALLS. PT VOIDING QS. PT WILL DISCHARGE TOMORROW IF HR REAMINS STABLE.
--- NOTE | 2017-11-23 18:41 | NUR ---
PATIENT RELAXING IN BED, VITALS AND I/OS DONE. PATIENT REPORTS HE FEELS GREAT! CALL LIGHT IN REACH NO OHTER NEEDS.
--- NOTE | 2017-11-23 20:00 | NUR ---
RECEIVED REPORT AT 1900, FOUND PT IN BED WITH AT BEDSIDE. PT HAD NO CONCERNS AT THAT TIME.
--- NOTE | 2017-11-23 20:54 | NUR ---
VITALS AND I&OS DONE AND CHARTED. BEDSIDE TABLE AND CALL LIGHT IN REACH. PT NEEDS NOTHING ELSE AT THIS TIME.
--- NOTE | 2017-11-23 21:19 | NUR ---
Charge nurse rounding note:. Awake, alert and oriented, watching tv in bed On room air, CPAP at bedside. Tele#[address], ocassional PVC's/multiform PVC's rate 107's. no c/o cp or sob at this time.
--- NOTE | 2017-11-23 22:00 | NUR ---
HR RATE IS ANYWHERE FROM 80'S TO 130'S AT TIMES. ALL 2100 MEDS WERE GIVEN. PT IS USING BI-PAP TONIGHT WHILE SLEEPING. ALL LOBES ARE CLEAR, PT DENIES PAIN OR DIZZINESS, ABD SOUNDS ARE PRESENT, HEMOVAC DRESSING IS INTACT WITH A SCANT AMOUNT OF DRAINAGE IN THE CANISTER. ABD DRESSING IS C/D/I. WILL KEEP AN EYE ON HR. THIS IS MY ONLY CONCERN AT THIS TIME.
--- NOTE | 2017-11-24 | NUR ---
PT IS SLEEPING AT THIS TIME.
--- NOTE | 2017-11-24 02:00 | NUR ---
PT WAS WOKEN UP FOR ASSESSMENT. PT HAS BEEN SLEEPING MOST OF THIS SHIFT SO FAR. PT IS ON BI-PAP. HR NOW IS 60'S-70'S. ALL LOBES ARE CLEAR, NO PERIPHERAL EDEMA NOTED. PT DENEIES SOB AND PAIN. PT IS BACK TO SLEEP. NO OTHER CONCERNS NOTED SO FAR.
--- NOTE | 2017-11-24 04:00 | NUR ---
PT IS AWAKE IN BED. PT HAS NO NEEDSAT THIS TIME.
--- NOTE | 2017-11-24 05:18 | NUR ---
AT START OF SHIFT HR WAS IN THE LOW 100'S -130'S AT TIMES. SCHEDULED 2100 LOPRESSOR AND CARDIAZAM WAS GIVEN. IT TOOK ABOUT ALMOST 2HRS FOR HR TO DROP <100. PT HR SINCE THEN HAS REMAINED <100. PT USED BI-PAP ALL NIGHT WHILE SLEEPING. OTHER V/S SO FAR ARE WDL. ALL LOBES ARE CLEARN NO PERIPHERAL EDEMA NOTED. PT FEELS WELL OVERALL. WOUNDVAC ONLY HAD A SCANT AMOUNT OF DRAINAGE PRESENT THIS SHIFT. ABD DRESSNIG FOR WOUNDVAC IS C/D/I. ABD SOUNDS ARE PRESENT. NO ISSUES NOTED AT THIS TIME.
--- NOTE | 2017-11-24 07:15 | NUR ---
BEDSIDE HANDOFF REPORT RECEIVED FROM SLURRY TANK TENDER RN. PT RESTING IN BED. PT ON TELE #7, HR 105. PT DENIES NEEDS AT THIS TIME.
--- NOTE | 2017-11-24 08:30 | NUR ---
PT SITTING IN CHAIR. PT DENIES PAIN. PT ON ROOM AIR, LUNG SOUNDS CLEAR, DENIES SOB. PT TOLERATING ADA DIET, DENIES NAUSEA, PT HAD BM TODAY. PT TACHYCARDIC HR 120-130'S, GIVEN SCHEDULED METOPROLOL, PT ASYMPTOMATIC. PT WALKING INDEPENDENT IN ROOM. WOUND VAC TO RLQ, WITHOUT LEAK, SMALL AMOUNT OF BLOODY DRAINAGE IN COLLECTION CONTAINER, DISCUSSED DRESSING CHNAGE TODAY. PT VOIDING WITHOUT DIFFICULTY. IV SALINE LOCKED, FLUSHED, PATENT. PT DENIES OTHER NEEDS AT THIS TIME.
--- NOTE | 2017-11-24 08:51 | NUR ---
CHANGED PATIENT'S LINENS. PATIENT IS IN THE BATHROOM.
--- NOTE | 2017-11-24 09:48 | NUR ---
SPOKE WITH PATIENT IN ROOM. PATIENT IS UP AMBULATING ON OWN. WOUND VAC IN PLACE. PATIENTS HR IS IN 130'S AFLUTTER ON TELEMETRY. HE STATES HE DOES NOT FEEL SOB OR CP. WE DISCUSSED PLAN FOR OUTPATIENT WOUND VAC AT DISCHARGE. PATIENT KNOWS HE WILL BE GIVEN PAPERWORK TO SIGN FOR [facility] AFTER THE OUTPATIENT MACHINE IS PLACED. HE KNOWS HE MAY HAVE A COPAY WITH THE USE OF MACHINE. HE FEELS HE IS ABLE TO GO HOME AND DEAL WITH THIS, HE HAS HAD ONE IN THE PAST. HE HAS NO QUESITONS AT THIS TIME.
--- NOTE | 2017-11-24 13:07 | NUR ---
VITALS TAKEN AND DIGOXIN HUNG AND RUNNING IV AT THIS TIME. PATIENT HAS NO C/O SOB OR CHEST PAIN AT THIS TIME.
--- NOTE | 2017-11-24 14:00 | NUR ---
DRESSING CHANGED TO RIGHT LOWER ABD WOUND VAC BY DAY SURGERY RN JUDY. PT TOLERATED WELL, DECLINED NEED FOR PAIN MEDICATION. DIGOXIN INFUSION COMPLETED, PT HR 90-100'S. IV FLUSHED, SALINE LOCKED. PT DENIES OTHER NEEDS AT THIS TIME.
--- NOTE | 2017-11-24 14:02 | NUR ---
IN TO ROOM 122 FOR WOUND VAC CHANGE. CALLIE RN AT BEDSIDE TO ASSIST. DRSG REMOVED, PT TOLERATED WELL. DENIES PAIN WITH REMOVAL. ADAPTIC REMOVED, GRANULATION TISSUE NOTED IN THE WOUND BED. NO SLOUGH OR NACROTIC TISSUES NOTED. NO FOUL ODOR. WOUND CLEANSER APPLIED. SKIN PREP APPLIED TO THE SURROUNDING SKIN, ALL INTACT, NO REDNESS NOTED. ADAPTIC APPLIED TO THE WOUND BED AND MARGINS DRAPPED. SPONGE PLACED IN WOUND. TRACK PAD PLACED AND DRAPPED. WOUND VAC CANISTER ATTACHED. SUCTION APPLIED AND SATISFACTORY. PT TOLERATED WELL.
--- NOTE | 2017-11-24 17:06 | NUR ---
NEW IV STARTED TO LEFT FOREARM. PT TOLERATED WELL. IV TO RIGHT FOREARM DISCONTINUED. PT DENIES NEEDS AT THIS TIME.
--- NOTE | 2017-11-24 17:46 | NUR ---
PT CONTINUES TO HAVE TACHYCARDIA, STARTED ON IV DIGOXIN, HR NOW IN 80-90'S. PT ON ROOM AIR, LUNG SOUNDS CLEAR. PT TOLERATING ADA DIET, DENIES NAUSEA. DRESSING CHANGE COMPLETED TO RIGHT LOWER ABD. PT INDEPENDENT IN ROOM. PT VOIDING QS, HAD BM TODAY.
[2017-11-24] MEDS ORDERED: DICLOXACILLIN500 MG PO (18:27)
[2017-11-24] MEDS ORDERED: DIGOX125 MCG PO (18:28)
[2017-11-24] MEDS ORDERED: ELIQUIS5 MG PO (18:28)
[2017-11-24] MEDS ORDERED: METOPROLOL TAR100 MG PO (18:29)
[2017-11-24] MEDS ORDERED: CARDIZEM LA360 MG PO (18:30)
--- NOTE | 2017-11-24 19:30 | NUR ---
BEDSIDE REPORT RECEIVED FROM CHERIE LEDESMA, PT AWAKE, UP IN CHAIR AT THIS TIME, IV SALINE LOCKED. PT DENIES PAIN, NO REQUESTS AT THIS TIME. INDEPENDANT IN ROOM. WOUND VAC IN PLACE, SMALL AMT REDNESS UNDER VAC. CALL LIGHT IN REACH, IN ROOM.
--- NOTE | 2017-11-24 21:00 | NUR ---
PHONE CALL TO BILL FROM [facility] TO VERIFY DILUTION FOR DIGOXIN, OKAY TO DILUTE IN 50 MLS D5W.
--- NOTE | 2017-11-24 21:30 | NUR ---
DIGOXIN INFUSING AT THIS TIME WNL, IV FLUSHES WELL. PT EDUCATION PROVIDED RE MEDICATION ADMINISTRATION. HR IRREGULAR RHYTHM, ON TELE 7. LUNGS CLEAR THROUGHOUT ALL LOBES. BOWEL TONES ACTIVE, PT DENIES NAUSEA. PT DENIES ANY PAIN AT THIS TIME. WOUND VAC INTACT. IN ROOM, GIVEN WARM BLANKET, ICE WATER. NO ADDITIONAL REQUESTS AT THIS TIME, CALL LIGHT IN REACH. BP 128/70 (82), HR IN THE 80S.
--- NOTE | 2017-11-24 23:34 | NUR ---
IN PT ROOM TO CHECK ON PT, PT SNORING, LIGHTS OFF IN ROOM. PT AWAKENS TO VOICE, CPAP APPLIED AT THIS TIME. PT'S SLEEPING ON COUCH. NO REQUESTS AT THIS TIME, URINAL EMPTIED.
--- NOTE | 2017-11-25 01:12 | NUR ---
CHECKED ON PT, PT SLEEPING, EYES CLOSED, CPAP ON, EQUAL CHEST RISE BILATERALLY.
--- NOTE | 2017-11-25 02:10 | NUR ---
DR. MONTILLA PHONED, NOTIFIED PT HR 65-68 AT THIS TIME. VERBAL ORDER TO PROCEED WITH DIGOXIN ADMINISTRATION AT THIS TIME.
--- NOTE | 2017-11-25 02:15 | NUR ---
DIGOXIN INFUSING WNL. BP 114/63 (76), HR 66-68, IRREGULAR RHYTHM. LUNGS CLEAR THROUGHOUT ALL LOBES, BOWEL TONES ACTIVE. PT HAS CPAP ON. BACK TO SLEEP, EYES CLOSED. BREATHING IS NON-LABORED.
--- NOTE | 2017-11-25 02:55 | NUR ---
IV SALINE LOCKED. PT SLEEPING, CPAP ON. LIGHTS OFF IN ROOM. CALL LIGHT IN REACH.
--- NOTE | 2017-11-25 04:58 | NUR ---
CHECKED ON PT, PT SLEEPING, VISIBLE CHEST RISE, BREATHING NON-LABORED. LIGHTS OFF IN ROOM.
--- NOTE | 2017-11-25 06:35 | NUR ---
PT SLEPT WELL THROUGHOUT SHIFT WITH CPAP ON. HR REMAINS IRREGULAR. ON TELE 7. HR MID 60S-90S THROUGHOUT SHIFT. IV SALINE LOCKED. WOUND VAC IN PLACE WNL. UP TO RESTROOM INDEPENDENTLY FOR VOIDS THROUGHOUT SHIFT.
--- NOTE | 2017-11-25 06:40 | NUR ---
PT AWAKE, UP IN CHAIR. GIVEN WASH CLOTH REQUESTED TO CLEAN UP IN RESTROOM. ON COUCH, GIVEN COFFEE REQUESTED. PTS HR IN THE LOW 90S ON TELE AT THIS TIME. NO ADDL REQUESTS, CALL LIGHT IN REACH.
--- NOTE | 2017-11-25 07:10 | NUR ---
BEDSIDE HANDOFF REPORT RECEIVED FROM BONE CHAR OPERATOR RN. PT IN BATHROOM, IN ROOM. PT DENIES NEEDS AT THIS TIME, DISCUSSED PLAN OF CARE FOR THE DAY.
--- NOTE | 2017-11-25 08:07 | NUR ---
PT SITTING IN CHAIR. PT DENIES PAIN. PT ON ROOM AIR, LUNG SOUNDS CLEAR. PT DENIES NAUSEA, BOWEL TONES ACTIVE. PT ON TELE #7, HR 98 APICAL, GIVEN 125 MCG DIGOXIN, DISCUSSED S/S OF DIGOXIN TOXICITY. CMS INTACT, WIHTOUT EDEMA. PT UP INDEPENDENTLY IN ROOM. AT BEDSIDE, UPDATE PROVIDED TO DAUGHTER YANE. PT DENIES OTHER NEEDS AT THIS TIME, DISCUSSED PLAN OF CARE, PT EXPECTED TO DISCHARGE TODAY.
--- NOTE | 2017-11-25 10:35 | NUR ---
FAXED SIGNED [facility] ORDER SHEET TO [facility], FAXED CONFIRMATION NUMBER [id number]. PORTABLE WOUND VAC DELIVERED TO PATIENT.
== END 2017-11-25 12:15 | disposition home or self-care (01) | DRG 571 ==
LOC: ED 22:56 → CCU 11-18 02:09 → MS 11-19 23:20
PROVIDERS: Surgery; ADMIT Internal Medicine
PROC: 0JB80ZZ Excision of Abdomen Subcutaneous Tissue and Fascia, Open Approach (ICD-10-PCS; principal; 2017-11-18 10:48)
DX: L02.211 Cutaneous abscess of abdominal wall (principal); I48.92 Unspecified atrial flutter; B95.61 Methicillin susceptible Staphylococcus aureus infection as the cause of diseases classified elsewhere; L03.311 Cellulitis of abdominal wall; G47.33 Obstructive sleep apnea (adult) (pediatric); E66.9 Obesity, unspecified; R91.8 Other nonspecific abnormal finding of lung field; E11.9 Type 2 diabetes mellitus without complications; F17.210 Nicotine dependence, cigarettes, uncomplicated; E78.5 Hyperlipidemia, unspecified; Z79.84 Long term (current) use of oral hypoglycemic drugs; Z68.38 Body mass index [BMI] 38.0-38.9, adult; Z79.82 Long term (current) use of aspirin; Z79.899 Other long term (current) drug therapy; Z85.46 Personal history of malignant neoplasm of prostate; Z96.89 Presence of other specified functional implants
CPT/HCPCS: 00400; 36415; 74177; 80048; 80053; 80069; 81001; 83605; 83690; 83735; 84443; 84484; 85025; 85610; 85730; 86140; 87040; 87070; 87075; 87077; 87186; 87205; 93005; 93010; 93306; 94660; 94762; 96374; 96375; 99285; 99407; J1160; J2370; J2405; J2543; J2765; J3010; J3480; J7030; J7120; Q9967

== ENCOUNTER 2018-05-03 08:31 | Day surgery (SDC) | payer OTHER ==
[~2018-05-03] VITALS: Ht 170.2 cm; Wt 104.8 kg
[~2018-05-03 08:31] MED LIST changes: +ASPIR-LOW81 MG PO; +AUGMENTIN 875-1 EACH PO; +CARDIZEM LA360 MG PO; +DICLOXACILLIN500 MG PO; +DIGOX125 MCG PO; +ELIQUIS5 MG PO; +FIBER500 MG PO; +MEN'S MULTI-VI1 EACH PO; +METOPROLOL TAR100 MG PO; +PROBIOTIC1 EAC1 PO; +SUPER B COMPLE150 MG PO
--- NOTE | 2018-05-03 10:40 | NUR ---
05/03/18 1040 Swathi Moralez 1031- PT ARRIVES TO PACU AWAKE AND TALKING WITH STAFF. REPORTS NO NAUSEA OR PAIN. PT JOKING AROUND WITH STAFF.
[2018-05-03] MEDS ORDERED: OXYCODON-ACETA1 EAC2 PO (10:58)
[2018-05-03] MEDS ORDERED: IBUPROFEN600 MG PO (10:58)
[2018-05-03] MEDS ORDERED: MAPAP325 MG PO (10:58)
--- NOTE | 2018-05-03 13:09 | NUR ---
1110: PATIENT BACK IN DAY SURGERY ROOM FROM PACU. DENIES PAIN. AWAKE AND ALERT. IV SITE WNL. RIGHT GROIN DRESSING WITH SMALL AMOUNT OF DRAINAGE. SCDs ON. DENIES NAUSEA. TOLERATING WATER. VS CHECKED. CALL LIGHT WITHIN REACH. AT BEDSIDE. 1215: VS CHECKED. PATIENT TOLERATED SANDWICH FOR LUNCH. 1235: PATIENT ASSISTED OOB AND TO BATHROOM. GAIT STEADY. VOID WITHOUT DIFFICULTY. GAIT STEADY BACK TO ROOM. PATIENT GETTING DRESSED. 1255: IV DC'D WNL. TIP INTACT. DRESSING APPLIED. DISCHARGE INSTRUCTIONS GIVEN TO PATIENT AND . PATIENT DISCHARGED TO HOME WITH VIA WHEELCHAIR.
--- NOTE | 2018-05-03 18:54 | EKG ---
[facility] [address] [facility] [place] [address] Signed Sinus bradycardia Incomplete right bundle branch block T wave abnormality, consider inferior ischemia Abnormal ECG When compared with ECG of 17-NOV-2017 23:57, Significant changes have occurred Confirmed by DONOVAN TAMEZ DO ([id number]) on 05/03/2018 6:54:23 PM Electronically Signed By: DONOVAN TAMEZ DO 05/03/18 1854 PATIENT NAME: DREW WHEATLEY Electrocardiogram DATE OF : 59 PHYSICIAN: DONOVAN TAMEZ DO REPORT #: [id number] REPORT IS CONFIDENTIAL AND NOT TO BE RELEASED WITHOUT AUTHORIZATION
--- NOTE | 2018-05-04 17:29 | OR ---
[facility] [address] [place], [place] [address] Signed DATE OF OPERATION: 05/03/2018 SURGEON: Esdras Santoyo MD PREOPERATIVE DIAGNOSES: 1. 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 2. History of right inguinal hernia repair with implantation of Prolene mesh (Dr. Bo Lobato 2013). 3. Infection and abscess of right groin with requiring of explantation of mesh 2015. 4. Recurrent wound infection requiring drainage and debridement, October 2017. POSTOPERATIVE DIAGNOSES: 1. Prolene suture in a base of wound area of draining sinus (removed). PROCEDURES: 1. Wound exploration. 2. Excision and explantation of foreign body causing recurrent wound draining sinus and removal of Prolene suture. ANESTHESIA: General endotracheal; Radha Fierro CRNA. INDICATION: This 63-year-old white man underwent a right inguinal hernia with implantation of Prolene mesh by Dr. Bo Lobato in 2013. In 2015, he was seen with possible recurrent right inguinal hernia with a bulky tender mass without signs of erythema. Exploration was undertaken showing no sign of hernia, but rather an abscess and with further exploration, obvious infection of the implanted mesh. The mesh and suture were explanted and a wound VAC was required for management for wound closure. November 18, 2017, he was noted to have additional infection and underwent incision and drainage and debridement where abscess had formed at the operative site. He recovered from that fully and at that time was found to have no retained foreign body. He recently was noted to have recurrent drainage near the medial aspect of the incision, not far from the pubic tubercle. The purulence was associated with some erythema of the medial aspect of his incision and a purulent draining sinus was noted. This has since healed over largely, but recurrent opening and drainage has been noted. On the basis of these findings, he was admitted at this time to undergo wound exploration and debridement as necessary and removal of any foreign material that may be discovered specifically suture or retained mesh (unlikely). He understands as does his Electronically Signed By: ESDRAS SANTOYO MD 05/04/18 1729 PATIENT NAME: DREW WHEATLEY OPERATIVE REPORT DATE OF : 59 REPORT #: [id number] PHYSICIAN: ESDRAS SANTOYO MD PCP: BETTY THOMPSON MD REPORT IS CONFIDENTIAL AND NOT TO BE RELEASED WITHOUT AUTHORIZATION [facility] [address] [place], [place] [address] Signed the risks of bleeding, infection, recurrent or persistent infection and other unforeseen complications, understand this and wish to proceed. FINDINGS: There is no sign of abscess per se. Dissection was carried down to the fascial layer. There was some chronic inflammatory change noted in the medial aspect of the incision and with close inspection, a retained Prolene suture. This was removed without difficulty measured approximately 2 cm in length. There was no other foreign material noted. An iodoform gauze was placed in the depth of the wound and the wound was partially closed with Vicryl. DESCRIPTION OF PROCEDURE: The patient was brought to the operating room, given a general endotracheal anesthetic. He received preoperative antibiotics (Ancef), heparin subcutaneously and sequential compression device stockings. After satisfactory general endotracheal anesthesia, the right lower abdomen was clipped and prepared with chlorhexidine solution and draped sterilely. Examination of the groin wound (two in fact) was undertaken and palpation revealed no sign of bogginess. The skin was intact at this point. An incision was made medially in the previous incision site where recurrent sinus drainage had been noted. Dissection was carried through the subcutaneous tissue sharply and ultimately probing with a hemostat. The medial aspect not far from the pubic tubercle was noted to be what appeared to be some chronic inflammatory soft gummy tissue and with good exposure at the base of this was a Prolene suture. This was grasped and explanted. It is likely this was the source of his recurrent infectious sinus (suture granuloma or stitch abscess). Irrigation was undertaken. Not mentioned previously was obtaining cultures when down to the depth of the wound. A 0.25-inch iodoform gauze was packed into the site and the dermis was closed somewhat loosely with interrupted 3-0 Prolene. Fluff gauze was applied as was tape. The skin was not fully closed. The patient was allowed to emerge from anesthesia, extubated, and taken to the recovery room in good condition having suffered no complication. Sponge, needle, and instrument counts reported as correct x3. Esdras Santoyo MD JM/TANYA Electronically Signed By: ESDRAS SANTOYO MD 05/04/18 1729 PATIENT NAME: DREW WHEATLEY OPERATIVE REPORT DATE OF : 59 REPORT #: [id number] PHYSICIAN: ESDRAS SANTOYO MD PCP: BETTY THOMPSON MD REPORT IS CONFIDENTIAL AND NOT TO BE RELEASED WITHOUT AUTHORIZATION [address] [address] Signed /[id number] cc: MD Bo Valdovinos MD Copies: BETTY THOMPSON MD, ANDREW L MD ~ Electronically Signed By: ESDRAS SANTOYO MD 05/04/18 1729 PATIENT NAME: DREW WHEATLEY OPERATIVE REPORT DATE OF : 59 REPORT #: [id number] PHYSICIAN: ESDRAS SANTOYO MD PCP: BETTY THOMPSON MD REPORT IS CONFIDENTIAL AND NOT TO BE RELEASED WITHOUT AUTHORIZATION
== END 2018-05-03 12:55 | disposition home or self-care (01) ==
LOC: DS 08:31
PROVIDERS: Surgery
PROC: 0JQ80ZZ Repair Abdomen Subcutaneous Tissue and Fascia, Open Approach (ICD-10-PCS; principal; 2018-05-03 10:30)
DX: T81.4XXA Infection following a procedure, initial encounter (principal); E11.9 Type 2 diabetes mellitus without complications; F17.210 Nicotine dependence, cigarettes, uncomplicated; Z85.46 Personal history of malignant neoplasm of prostate; Z98.890 Other specified postprocedural states; Z79.84 Long term (current) use of oral hypoglycemic drugs; Z79.82 Long term (current) use of aspirin; Z79.899 Other long term (current) drug therapy
CPT/HCPCS: 00400; 93005; 93010; J0330; J0690; J1644; J1885; J2250; J2704; J3010; J7120

== ENCOUNTER 2018-09-18 18:46 | Inpatient (IN) | payer OTHER ==
[~2018-09-18] VITALS: Ht 170.2 cm; Wt 108.4 kg
[~2018-09-18 18:46] MED LIST changes: +GLUCOPHAGE1000 MG PO; -GLUCOPHAGE500 MG PO; +IBUPROFEN600 MG PO; +MAPAP325 MG PO; -SUPER B COMPLE150 MG PO; +VITAMIN B-12250 MCG PO
--- NOTE | 2018-09-19 12:09 | HP ---
[facility] [address] [facility] [place] [address] Signed ADMISSION DATE: 09/18/2018 REASON FOR ADMISSION: Recurrent induration, erythema, and pain of right groin. HISTORY OF PRESENT ILLNESS: This 63-year-old white man is a patient of Dr. Roebrt Thompson. The patient is well known to me from the past. In the past few days, he has had increase in induration and fullness of his right groin wound for which he has had multiple operations. Those details will be outlined in the following paragraphs. From his recent episode, he has been getting along well and he has had no wound drainage or anything of that sort, but has had increasing pain and some induration without drainage. He is noted to have temperature as high as 102. He was evaluated by Dr. Robert Thompson, who was quite concerned regarding the density surrounding his wound, particularly in the lateral aspect. A CT scan was performed in [place], which shows intense inflammatory changes in the area but no obvious abscess per se. He is admitted for further evaluation and care by me. It is recalled that in 2013, he underwent right inguinal hernia repair with implantation of Prolene mesh by Dr. Bo Lobato. In 2015, he was seen by me with possible recurrent right inguinal hernia given that he had a bulky, tender mass without signs of erythema and without sign of reduction of the clinical finding of hernia. On that basis, exploration was undertaken, which showed no sign of hernia, but rather a large abscess and further exploration with obvious infection of implanted mesh. The mesh was explanted as it was somewhat free-floating in the wound. The wound VAC device was required for optimal management of the infection and closure of it. In October of 2017, he was noted to have an additional infection and underwent incision and drainage and debridement where abscess was performed at the operative site on the medial aspect. He recovered from that full and at that time was found to have no retained foreign body. In [place] of this past year 2017, he was noted to have an episodically draining sinus in the medial aspect of the long right groin incision. Erythema, tenderness, and purulent drainage episodically were noted and on May 03, 2018, he underwent wound exploration. He was found to have foreign body granuloma (stitch abscess) related to a retained Prolene suture, this was removed. Electronically Signed By: ESDRAS SANTOYO MD 09/19/18 1209 PATIENT NAME: DREW WHEATLEY HISTORY AND PHYSICAL DATE OF : 59 REPORT #: [id number] PHYSICIAN: ESDRAS SANTOYO MD PCP: ROBERT THOMPSON MD REPORT IS CONFIDENTIAL AND NOT TO BE RELEASED WITHOUT AUTHORIZATION [facility] [address] [place], [place] [address] Signed The patient noted remarkable improvement following explantation of this suture. He had been doing well up until the past several days as previously noted where pain, induration, and inflammation was noted. PAST MEDICAL HISTORY: Notable for prostate cancer for which he underwent radiation therapy (seed implant approach). Additionally, he is known to have diabetes, hypercholesterolemia, diverticulosis, and hernia with repair and complications as described. SOCIAL HISTORY: He has been everyday smoker, 3/4 a pack of cigarettes daily. He does use alcohol. MEDICATIONS: Include metformin, fenofibrate, glimepiride, lisinopril, aspirin, and atorvastatin. REVIEW OF SYSTEMS: He denies any shortness of breath or chest pain. He has had no hematuria. No dysuria. Denies any cough. PHYSICAL EXAMINATION: GENERAL: An obese white man, who looks to be in mild discomfort. He is accompanied by his . NECK: Shows no thyromegaly or cervical adenopathy. Trachea is midline. CHEST: Clear. HEART: Regular without murmur. ABDOMEN: Obese, but soft. There is no focal mass or tenderness. In the right groin, there is an area of prior incision. Incision is completely intact. There is no sign of opening or drainage of purulence. Medially the soft tissue is quite pliable and laterally there is induration, mild erythema, and no clear evidence of fluctuance proper. DIAGNOSTIC DATA: Notably a CT scan was performed today, was interpreted by Dr. Solano in [place] and confirming inflammatory changes of the right lower quadrant, incidental findings of intraluminal gallstones, and a gallbladder ultrasound with multiple gallstones. ASSESSMENT: His induration is not accompanied by any draining sinus. It is uncertain to me on the images I was able to review from [place] today whether or not there is indeed an abscess collection or simply inflammatory change of the soft tissue. If there is a purulent collection, of course drainage would be appropriate. Electronically Signed By: ESDRAS SANTOYO MD 09/19/18 1209 PATIENT NAME: DREW WHEATLEY HISTORY AND PHYSICAL DATE OF : 59 REPORT #: [id number] PHYSICIAN: ESDRAS SANTOYO MD PCP: ROBERT THOMPSON MD REPORT IS CONFIDENTIAL AND NOT TO BE RELEASED WITHOUT AUTHORIZATION [address] [address] Signed I will review the CT scan images in more detail with radiologist tomorrow. In the meantime, we will start on antibiotics. At this point, it is becoming essential that he discontinue smoking. This may be contributing to his problem to some degree. We will set up a smoking cessation plan as well. MD SRIDHAR Cornell/TANYA /[id number] Copies: ~ Electronically Signed By: ESDRAS SANTOYO MD 09/19/18 1209 PATIENT NAME: DREW WHEATLEY HISTORY AND PHYSICAL DATE OF : 59 REPORT #: [id number] PHYSICIAN: ESDRAS SANTOYO MD PCP: ROBERT THOMPSON MD REPORT IS CONFIDENTIAL AND NOT TO BE RELEASED WITHOUT AUTHORIZATION
[2018-09-19] MEDS ORDERED: LOSARTAN POTASS25 MG PO (17:14)
--- NOTE | 2018-09-21 20:04 | EKG ---
[facility] [address] [facility] [place] [address] Signed Sinus bradycardia Otherwise normal ECG When compared with ECG of 03-MAY-2018 08:42, Nonspecific T wave abnormality now evident in Lateral leads Confirmed by NESTOR MONTILLA MD ([id number]) on 09/21/2018 8:04:18 PM Electronically Signed By: NESTOR MONTILLA MD 09/21/182003 PATIENT NAME: DREW WHEATLEY Electrocardiogram DATE OF : 59 PHYSICIAN: NESTOR MONTILLA MD REPORT #: [id number] REPORT IS CONFIDENTIAL AND NOT TO BE RELEASED WITHOUT AUTHORIZATION
--- NOTE | 2018-09-23 15:01 | OR ---
[facility] [address] [place], [place] [address] Signed DATE OF OPERATION: 09/20/2018 SURGEON: Esdras Santoyo MD PREOPERATIVE DIAGNOSIS: Induration of right groin (recurrent), assess for possible abscess. POSTOPERATIVE DIAGNOSIS: Deep subcutaneous abscess. PROCEDURE PERFORMED: Ultrasound-guided needle aspiration of abscess of right groin. ANESTHESIA: 1% lidocaine. INDICATION: This 63-year-old diabetic man has had recurrent infection of his right groin and had explantation of Prolene mesh placed [place] in [address] Bo Lobato and removed over a year ago with recurrent infectious complications. He was recently admitted by me upon referral from Dr. Thompson with marked induration of the right groin and a CT scan performed in [place] that was not clear for findings of abscess or not. He has been started on Zosyn antibiotic and continues to do quite well and induration is improving. However, he still has firmness in the area. There has been no spontaneous necessitation as he has had in the past. On that basis, I have recommended ultrasound interrogation of the site and needle aspiration as appropriate. The risk of bleeding, infection, and so forth were reviewed with him. He understands and wished to proceed. FINDINGS: Interrogation of the right groin area with the ultrasound device did show what appeared to be fluid collection. Direct aspiration delivered 6 mL of purulent material. There remains purulent material as well. DESCRIPTION OF PROCEDURE: At the bedside in the supine position, the right groin area was interrogated with the Milabra S-ICU ultrasound device demonstrating the area of induration with probable fluid collection. The area was prepared with Betadine solution and 1% lidocaine injected locally. Using a control tip syringe and an 18-gauge needle, direct visualization of the collection was noted and aspiration undertaken delivering 6 mL of opaque, greenish yellow purulent material. The needle was removed and a gauze was Electronically Signed By: ESDRAS SANTOYO MD 09/23/18 1501 PATIENT NAME: DREW WHEATLYE OPERATIVE REPORT DATE OF : 59 REPORT #: [id number] PHYSICIAN: ESDRAS SANTOYO MD PCP: ROBERT THOMPSON MD REPORT IS CONFIDENTIAL AND NOT TO BE RELEASED WITHOUT AUTHORIZATION [facility] [address] [place], [place] [address] Signed applied. He tolerated the procedure well. CONCLUDING DIAGNOSIS: Indeed there is an abscess in this area. Drainage will be necessary. As the patient has eaten recently, we will likely perform this after the appropriate amount of time, likely in the morning. MD SRIDHAR Cornell/TANYA /[id number] cc: Robert Thompson MD Copies: ROBERT THOMPOSN MD ~ Electronically Signed By: ESDRAS SANTOYO MD 09/23/18 1501 PATIENT NAME: DREW WHEATLEY OPERATIVE REPORT DATE OF : 59 REPORT #: [id number] PHYSICIAN: ESDRAS SANTOYO MD PCP: ROBERT THOMPSON MD REPORT IS CONFIDENTIAL AND NOT TO BE RELEASED WITHOUT AUTHORIZATION
[2018-09-24] MEDS ORDERED: SULFAMETHOXAZO1 EAC1 PO (17:12)
[2018-09-24] MEDS ORDERED: MAPAP325 MG PO (17:12)
[2018-09-24] MEDS ORDERED: NICOTINE1 EAC1 TD (17:23)
--- NOTE | 2018-09-27 12:01 | DS ---
[facility] [address], [place] [address] Signed ADMISSION DATE: 09/18/2018 DISCHARGE DATE: 09/24/2018 REASON FOR ADMISSION: This 63-year-old white man is a patient of Dr. Robert Thompson of [place], [place]. He is known to have ongoing smoking as well as diabetes mellitus. In the days preceding his evaluation by Dr. Thompson, he had increasing induration and fullness of the right groin. He has had multiple operations in the past in this area, initially starting with a right inguinal hernia repair by Dr. Bo Lobato with implantation of Prolene mesh in 2013. I saw the patient in 2015, was thought to have a recurrent hernia as there was a nonreducible mass in the region of the prior incision and at operation, he was found to have a large abscess. Explantation of poorly situated mesh was undertaken at that time. A wound VAC device was used for optimal management of his infection. In October of 2017, he was noted to have additional infection, underwent incision and drainage and debridement where abscess was noted at the operative site in the medial aspect. He recovered from that in full. In March of this past year in 2017, he was noted to have an episodically draining sinus in the medial aspect of the long right groin incision and on May 03, 2018, underwent wound exploration where he was found to have a foreign body granuloma (stitch abscess), no doubt accounting for his persistent draining sinus. The patient has been doing well up to the past several days prior to current admission where he was noted to have inflammation and induration of the area. CT scan was performed in [place], [place] under the direction of Dr. Thompson which showed marked inflammation, but no sign of actual fluid collection. He is admitted for further evaluation and care. PERTINENT PHYSICAL EXAMINATION: GENERAL: Shows an obese white man who looked to be in mild discomfort. He is nontoxic. ABDOMEN: Obese, but soft. There is no focal mass, but in the right groin, there is an area of prior incision. The incision was completely intact. There is no sign of discontinuity or drainage or separation. There is only mild erythema. There was mild tenderness as well. There is no fluctuance. The CT scan was reviewed in detail with Dr. Salgado and it was unclear if in fact there was a fluid collection to drain. He was begun on broad-spectrum antibiotic Zosyn, which he had improvement of symptoms. By 20 September, given the fact that his induration was resolving, but still was a tense area. I performed a bedside ultrasound-guided aspiration of what appeared to be a complicated trabeculated collection of fluid. This Electronically Signed By: ESDRAS SANTOYO MD 09/27/18 1201 PATIENT NAME: DREW WHEATLEY DISCHARGE SUMMARY DATE OF : 59 REPORT #: [id number] PHYSICIAN: ESDRAS SANTOYO MD PCP: ROBERT THOMPSON MD REPORT IS CONFIDENTIAL AND NOT TO BE RELEASED WITHOUT AUTHORIZATION [facility] [address] [place] [id number] Signed definitely did deliver purulence. This subsequently found to be Staph aureus with a variable degree of sensitivities. On the following day, September 21, 2018, he underwent formal operation which included opening of the wound and drainage of complex abdominal wall abscess. The findings were such that there was a thickened vulcanized, poorly vascularized dense cavity which was fully debrided. Further dissection deeply showed some residual foreign body material of mesh and a sizable Prolene suture, all of which was explanted. At this point, I do not feel there is any retained foreign material, though that cannot be known for certain of course. A wound VAC was applied to the area, which he tolerated well. He was transitioned to oral antibiotic Bactrim on the basis of his culture and sensitivities corresponding to Staph aureus. Additionally smoking cessation with nicotine patch was initiated. Notably, he had no urge to smoke while hospitalized. His diabetes was managed with sliding scale insulin. So as to simplify his discharge considering the difficulty previously and getting insurance approval for a wound VAC device, a SNaP suction device was applied on his initial dressing change which showed good retention of suction and would likely provide adequate function of a wound suction device at discharge. This would obviate the need for cumbersome and sometimes fruitless attempts at organizing a formal wound VAC device. He is discharged to home in much improved condition and doing well. It is anticipated that he will remain on oral antibiotics for additional 10 days. DISCHARGE MEDICATIONS: Include: 1. Bactrim DS one p.o. b.i.d. #20. 2. Tylenol 650 p.o. q.6 hours as needed for pain #30, refill #1. 3. Metformin 1000 mg tablets b.i.d. 4. Fenofibrate 134 mg capsule one p.o. daily. 5. Glimepiride 2 mg one tablet p.o. daily. 6. Atorvastatin 80 mg half tablet p.o. at bedtime. 7. Methylcellulose fiber 500 mg tablet two tabs daily. 8. Metoprolol 0.5 mg tablets b.i.d. 9. Aspirin enteric-coated 81 mg p.o. daily. 10. Lactobacillus probiotic one tablet p.o. daily. 11. Vitamin B12 250 mcg tablet p.o. daily. 12. Multivitamin men's one tab p.o. daily. 13. Losartan 25 mg p.o. at bedtime. Electronically Signed By: ESDRAS SANTOYO MD 09/27/18 1201 PATIENT NAME: DREW WHEATLEY DISCHARGE SUMMARY DATE OF : 59 REPORT #: [id number] PHYSICIAN: ESDRAS SANTOYO MD PCP: ROBERT THOMPSON MD REPORT IS CONFIDENTIAL AND NOT TO BE RELEASED WITHOUT AUTHORIZATION [facility] [address], [place] [address] Signed FOLLOWUP PLAN: He will return to see me in my office prior to October 11. The corporate planner, Fior Thomas, has learned that change of the SNaP device is available in [place] and if that becomes problem, then wound dressing change can be undertaken in [place]. As regards smoking, he will be discharged as well with nicotine patch 7 mg topically daily. DISCHARGE DIAGNOSES: 1. Recurrent complex right groin abscess. 2. History of right inguinal hernia repair with subsequent delayed infection. 3. Status post ultrasound-guided fine-needle aspiration biopsy of purulence with subsequent right groin wound exploration, advanced debridement, explantation of residual mesh and Prolene suture and application of wound VAC device. 4. Diabetes mellitus. 5. Smoking. MD SRIDHAR Cornell/TANYA /[id number] cc: Robert Thompson MD Copies: ROBERT THOMPSON MD ~ Electronically Signed By: ESDRAS SANTOYO MD 09/27/18 1201 PATIENT NAME: DREW WHEATLEY DISCHARGE SUMMARY DATE OF : 59 REPORT #: [id number] PHYSICIAN: ESDRAS SANTOYO MD PCP: ROBERT THOMPSON MD REPORT IS CONFIDENTIAL AND NOT TO BE RELEASED WITHOUT AUTHORIZATION
== END 2018-09-24 19:05 | disposition home or self-care (01) | DRG 603 ==
LOC: MS 18:46
PROVIDERS: ADMIT Surgery
PROC: 0J9L3ZX Drainage of Right Upper Leg Subcutaneous Tissue and Fascia, Percutaneous Approach, Diagnostic (ICD-10-PCS; principal; 2018-09-20)
DX: L02.214 Cutaneous abscess of groin (principal); E11.9 Type 2 diabetes mellitus without complications; Z79.4 Long term (current) use of insulin; Z85.46 Personal history of malignant neoplasm of prostate; F17.210 Nicotine dependence, cigarettes, uncomplicated; E78.00 Pure hypercholesterolemia, unspecified; K57.90 Diverticulosis of intestine, part unspecified, without perforation or abscess without bleeding
CPT/HCPCS: 00400; 36415; 80048; 85025; 87070; 87075; 87077; 87186; 87205; 93005; 93010; J1644; J1815; J2543; J2704; J3010; J7060; J7120

== ENCOUNTER 2019-05-06 12:36 | Inpatient (IN) | payer OTHER ==
[~2019-05-06] VITALS: Ht 170.2 cm; Wt 112.9 kg
[~2019-05-06 12:36] MED LIST changes: +ATORVASTATIN CA40 MG PO; -ATORVASTATIN CA80 MG PO; +LOSARTAN POTASS25 MG PO; +NICOTINE1 EAC1 TD; -PROBIOTIC1 EAC1 PO; +PROBIOTIC1 EAC7 PO; +SULFAMETHOXAZO1 EAC1 PO
--- NOTE | 2019-05-14 17:44 | NUR ---
05/14/19 174 Araceli Meredith 1733-PATIENT ARRIVED TO PACU NONAROUSABLE. . RN DOING JAW THRUST TO MAINTAIN OPEN. STOP BANG SCORE OF 5. ABDOMINAL INCISION CDI NORBERTO DRAIN TO LEFT SIDE SANGUINOUS DRAINAGE. 6L MASK. 1741-PATIENT OPENING EYES RAISING HANDS TO MOUTH ORAL AIRWAY REMOVED. PATIENT ORIENTED TO PACU. ORIENTED X3. DENIES PAIN OR NAUSEA REMAINS ON 6L MASK
--- NOTE | 2019-05-14 18:45 | NUR ---
PT ALERT AND ORIENTED UPON ARRIVAL TO UNIT. DENIES PAIN, NAUSEA, OR OTHER CONCERN AT THIS TIME. VS OBTAINED, SATTING 96% ON 2LNC. MEPILEX AND OPSITE TO MIDLINE ABD AND LEFT LQ, NORBERTO DRAIN TO LLQ WITH MOD AMOUNT OF SANGUINOUS DRAINAGE. IV TO RIGHT FA FLUSHES EASILY, INFUSING WNL. AND DAUGHTER AT BEDSIDE. PT UPDATE BREIFLY ON POC. GIVEN ICE WATER. CALL LIGHT WITHIN REACH.
--- NOTE | 2019-05-14 19:40 | EKG ---
[facility] [address] [facility] [place] [address] Signed Sinus bradycardia Otherwise normal ECG When compared with ECG of 21-SEP-2018 09:42, No significant change was found Confirmed by DONOVAN TAMEZ DO ([id number]) on 05/14/2019 7:40:04 PM Electronically Signed By: DONOVAN TAMEZ DO 05/14/191939 PATIENT NAME: DREW WHEATLEY Electrocardiogram DATE OF : 59 PHYSICIAN: DONOVAN TAMEZ DO REPORT #: [id number] REPORT IS CONFIDENTIAL AND NOT TO BE RELEASED WITHOUT AUTHORIZATION
--- NOTE | 2019-05-14 19:44 | NUR ---
RECEIVED REPORT FROM DAY SHIFT RN. PATIENT IS RESTING IN BED. PATIENTS POST-OP VITALS TAKEN. PATIENT DENIES ANY PAIN OR NAUSEA. PATIENTS FAMILY IS PRESENT IN THE ROOM. NO NEEDS NOTED. CALL LIGHT IN REACH.
--- NOTE | 2019-05-14 21:50 | NUR ---
PATIENT ASSESMENT COMPLETED. PATIENTS VITALS TAKEN AND RECORDED. ARGUELLO EMPTIED. NORBERTO EMPTIED. INTAKE AND OUPUT RECORDED. PATIENTS EVENING MEDICATIONS GIVEN PER ORDER. PATIENT DENIES AND PAIN OR NAUSEA. PATIENT ASSISTED TO STAND AT THE BEDSIDE. PATIENT AMBULATED IN THE HALLWAY X2 LAPS. PATIENT IS BACK IN ROOM SITTING ON THE EDGE OF THE BED. PATIENT DENIES ANY NEEDS. CALL LIGHT IN REACH.
--- NOTE | 2019-05-14 22:24 | NUR ---
PATIENT IS STANDING AT THE BEDSIDE. PATIENT RATES PAIN AT A 3/10. PATIENT STATED THE PAIN IS MORE A FEELING OF NEEDING TO PASS GAS. PATIENT GIVEN HI TORADOL PER REQUEST. PATIENT DENIES ANY FURTHER NEEDS. FAMILY IS IN THE ROOM. PATIENT DENIES ANY NEEDS. CALL LIGHT IN REACH.
--- NOTE | 2019-05-14 22:47 | NUR ---
ICE WATER FOR AND PATIENT.
--- NOTE | 2019-05-14 23:04 | NUR ---
PATIENT'S PM BLLOD SUGAR WAS 71, WAS HERE AND DC'D METFORMIN AND TOLD US TO GIVE HER A GLASS OF ORANGE JUICE AND RECHECK IN 1 HOUR AND SUGAR IS NOW 95, PATIENT IS HAVING NO SYMPTOMS AND HAS A GLASS OF POP AT BED SIDE AFTER SHE DRANK THE ORANGE JUICE. PATIENT AMBULTED TO THE BATHROOM WITH 1PSBA AND FWW AND DID FINE AND IS NOW BACK IN BED WATCHING TV.
--- NOTE | 2019-05-14 23:17 | NUR ---
PATIENT IS NOW IN BED RESTING. IV INFUSING PER ORDER. PATIENT RATES PAIN AT A 2/10. PATIENT STATED "THAT MEDICATION SHOULD HELP". PATIENT DENIES THE NEED FOR ADDITIONAL PAIN MEDICATION. PATIENT DENIES ANY NEEDS. CALL LIGHT IN REACH. CPOX IN USE. PATIENT PLACED ON 2L VIA NC WHILE SLEEPING. LIGHTS TURNED OFF. ASLEEP ON COUCH.
--- NOTE | 2019-05-15 00:48 | NUR ---
PATIENT IS RESTING IN BED WITH EYES CLOSED, CPOX READINGS ARE WNL. CALL LIGHT IN REACH.
--- NOTE | 2019-05-15 03:08 | NUR ---
PATIENTS VITALS TAKEN AND RECORDED. PATIENTS ARGUELLO EMPTIED. INTAKE AND OUPUT RECORDED. PATIENT RATES PAIN AT A 2/10. PATIENT DENIES THE NEED FOR PAIN MEDICATION. PATIENT DENIES ANY NAUSEA. PATIENT DENIES ANY NEEDS. CALL LIGHT IN REACH.
--- NOTE | 2019-05-15 04:42 | NUR ---
PATIENT IS RESTING IN BED WITH EYES CLSOED, CPOX WNL. CALL LIGHT IN REACH.
--- NOTE | 2019-05-15 04:45 | NUR ---
PATIENT RESTED WELL THROUGHOUT THE SHIFT. PATIENT IS ON AN ADA DIET, BUT ONLY TOLERATING CLEARS AT THIS TIME, AND NO NAUSEA NOTED. PATIENT HAS CPOX IN USE. PATIENT IS ON RA WHILE AWAKE AND 2L VIA NC WHILE ASLEEP. PATIENT HAS SCDS WHILE IN BED. PATIENT HAS ARGUELLO IN PLACE. PATIENT HAS MID, LOWER ABD SURGICAL SITE THAT IS COVERED WITH MEPILEX AND OPSITE, NO DRAINAGE NOTED. PATIENT HAS NORBERTO IN LLQ AND IS DRAINING SEROSANUGUINOUS FLUID. PATIENT IS A SBA AND HAS AMBULATED MULTIPLE TIMES IN THE HALLWAY. PATIENT IS AAOX3 AND USES CALL LIGHT APPROPRIATELY.
--- NOTE | 2019-05-15 06:14 | NUR ---
DR SANTOYO GAVE ORDERS TO GITA ARGUELLO.
--- NOTE | 2019-05-15 06:37 | NUR ---
PATIENTS MORNING VITALS TAKEN AND RECORDED. PATIENTS ARGUELLO REMOVED PER MD ORDER. PATIENTS INTAKE AND OUPUT RECORDED. PATIENT RATES PAIN AT A 3/10 IN LOWER ABD. PATIENT GIVEN PRN TORADOL PER ORDER. PATIENT DENIES ANY FURTHER NEEDS. REMAINS IN THE ROOM. NO NEEDS NOTED. CALL LIGHT IN REACH.
--- NOTE | 2019-05-15 07:20 | NUR ---
patient resting in bed with sitting in chair beside him. fresh ice water given to patient and . wash cloth, towel, tooth brush set up at sink. patient wants to rest at this time. call button in reach. no other needs.
--- NOTE | 2019-05-15 07:35 | NUR ---
Pt in bed at this time, resp even and non labored. Pt reports pain is tolerable at this time. Pt is on RA. Abdominal incision is covered, dawit to llq. Dawit intact, patent with sarosang drainage. Pt denies needs at this time. at bedside. Call light within reach.
--- NOTE | 2019-05-15 09:37 | NUR ---
PATIENT SITTING UP IN CHAIR WITH BY HIS SIDE. PATIENT SLOWLY WORKING ON CL DIET. PATIENT VOIDED 50CC. FRESH ICE WATER GIVEN. CALL BUTTON IN REACH. NO OTHER NEEDS AT THIS TIME.
--- NOTE | 2019-05-15 11:00 | NUR ---
SPOKE WITH PATIENT AND IN ROOM. PATIENT UP AMBULATING IN ROOM INDEPENDENTLY. PATIENT LIVES WITH , IS STILL EMPLOYED, DRIVES. PATIENT USES NO DME NORMALLY. PATIENT HAS 3 STEPS WITH RAIL TO HOUSE, NO ISSUES WITH STAIRS. HAS PCP IN [place] AND WILL DRIVE HIM HOME AND TO APPOITNEMENTS WHILE HE RECOVERS. HE KNOWS OF NO BARRIERS TO GO HOME SAFELY AT DISCHARGE. CONCERNED REGAARDING SPECIALIZED BILLING NEEDED FOR [employer]. DISCUSSED I WILL LET ADMITTING/BILLING KNOW FOR THEM. NO FURTHER QUESTIONS. WILL FOLLOW NEEDED.
--- NOTE | 2019-05-15 12:39 | NUR ---
Pt doing well so far this shift. Pt reports very minimal abd pain, however states gas cramping has increased. Pt declining all medicaions for pain for this shift. Pt walking frquently in hallway; tolerating very well. Pt denies needs.
--- NOTE | 2019-05-15 12:42 | NUR ---
MED REC COMPLETE
--- NOTE | 2019-05-15 13:49 | NUR ---
PT IS RESTING IN BED, WITH LOTS OF FAMILY PRESENT. HE SEEMS IN GOOD SPIRITS, SAID HE CAN'T WAIT TO EAT POPCORN AND FRUIT THAT HE HASN'T BEEN ABLE TO IN 15 YRS! EXCITED TO PASS GAS, HERE PT SAYS THEY WANT YOU TO. EXTENDED A BLESSING, WILL FOLLOW NEEDED
--- NOTE | 2019-05-15 15:40 | NUR ---
PT VISITING WITH FAMILY AT THIS TIME. PT DENIES NEEDS. PERSONAL SUPPLIES AND CALL LIGHT WITHIN REACH. NO NEEDS AT THIS TIME.
--- NOTE | 2019-05-15 17:09 | NUR ---
A&OX3. ON RA. AMULATED HW SEVERAL TIMES TODAY. DRESSING TO ABD CDI, NORBERTO LLQ. ADA DIET WITH BS CHECKS. PT TOLERATING SOFT FOODS WELL. DENIES NAUSEA. FLATUS AND BURPING PRESENT. ACTIVE BT X4. SHEREEN WITH 2L OXYGEN AT NIGHT. SCD'S. PT ONLY TAKING TYLENOL THIS SHIFT. D5LR@85ML/HR.
--- NOTE | 2019-05-15 18:30 | NUR ---
VORB TO D/C IV FLUIDS AT THIS TIME. PT NOW SL.
--- NOTE | 2019-05-15 19:33 | NUR ---
RECEIEVED REPORT FROM DAY SHIFT RN. PATIENT IS RESTING IN BED WITH EYES CLOSED, RR 16. CALL LIGHT IN REACH.
--- NOTE | 2019-05-15 21:33 | NUR ---
PATIENT ASSESMENT COMPLETED. PATIENT IS SITTING UP AT THE EDGE OF THE BED. PATIENT COMPLAINS OF DISCOMFORT IN HIS ABD. PATIENT GIVEN PRN TYLENOL PER ORDER. PATIENTS VITALS TAKEN AND RECORDED. PATIENT AMBULATED TO RESTROOM AND WAS ABLE TO VOID. PATIENT HAD A SMEAR OF BM ON HIS SHEETS. BED SHEETS CHANGED. PATIENTS EVENING MEDICATIONS GIVEN PER ORDER. PATIENTS INTAKE AND OUPUT RECORDED. NORBERTO EMPTIED. DR SANTOYO IN TO SEE PT. PATIENT DENIES ANY NEEDS. NO DRAINAGE NOTED ON MEPILEX AND OPSITE ON LOW ABD. PATIENTS CALL LIGHT IN REACH.
--- NOTE | 2019-05-15 22:46 | NUR ---
PATIENT IS RESTING IN BED WITH EYES CLOSED, RR 17. CALL LIGHT IN REACH.
--- NOTE | 2019-05-16 00:54 | NUR ---
PATIENT IS RESTING IN BED WITH EYES CLSOED, RR 16. CALL LIGHT IN REACH.
--- NOTE | 2019-05-16 01:35 | NUR ---
PATIENT CALLED AND REQUESTED PAIN MEDICATION. PATIENT GIVEN PRN MOTRIN PER ORDER. PATIENT RATES PAIN AT A 4/10. PATIENT UP TO USE THE RESTROOM. PATIENT WAS BALE TO VOID. PATIENT IS BACK IN BED RESTING. PATIENTS SCHEDULED IV ABX INFUSING PER ORDER. ICE WATER REFILLED PER ORDER. NO FURTHER NEEDS NOTED. CALL LIGHT IN REACH.
--- NOTE | 2019-05-16 02:30 | NUR ---
IV ABX COMPLETED INFUSING. PATIENT IS NOW SL PER ORDER. PATIENT IS RESTING IN BED WITH EYES CLSOED, RR 18. CALL LIGHTIN REACH.
--- NOTE | 2019-05-16 04:14 | NUR ---
PATIENT IS RESTING IN BED WITH EYES CLSOED, RR 17. CALL LIGHT IN REACH.
--- NOTE | 2019-05-16 04:43 | NUR ---
PATIENT RESTED WELL THROUGHOUT THE SHIFT. PATIENT IS ON AN ADA DIET AND ADVANCING SLOWLY AND TOLERATED. PATIENT IS ON RA. PATIENT HAS SCDS ORDERED. PATIENT HS NORBERTO IN LLQ. PATIENT IS SBA/IND. PATIENT HAS BS CHECKS. PATIENT HAS MID/LOW ABD MEPILEX WITH OPSITE DRESSING THAT IS C/D/I, AND NO DARAINAGE NOTED. PATIENT IS SL. PATIENT HAS NORBERTO IN LLQ THAT IS PUTTING OUT A SMALL AMOUNT OF SEROSANGUINOUS DRAINAGE. PATIENT IS AAOX3.
--- NOTE | 2019-05-16 05:09 | NUR ---
PATIENTS VITALS TAKEN AND RECORDED. PATIENTS NORBERTO EMPTIED. URINAL EMPTIED. PATIENTS INTAKE AND OUPUT RECORDED. PATIENT IS UP WANDERING AROUND THE ROOM. PATIENT RATES PAIN/ACHE IN HIS LOWER ABD AT A 5/10. PATIENT GIVEN PRN TYLENOL PER ORDER. PATIENT PROVIDED WITH ROBE TO AMBUATE IN THE HALLWAY WHEN READY. NO FURTHER NEEDS NOTED. CALL LIGHT IN REACH.
--- NOTE | 2019-05-16 09:00 | NUR ---
MORNING ASSESSMENT AND MEDICATION DUE. PT REPORTS 3/10 PAIN THAT IS TOLERABLE BUT WOULD LIKE MOTRIN TO "STAY AHEAD OF THE PAIN BECAUSE I'M GOING FOR A WALK." PT HAS FINISHED BREAKFAST, NO BLOOD SUGAR WAS TAKEN. CBG TAKEN = 209, MD INFORMED AND STATES TO GIVE INSULIN ACCORDING TO SLIDING SCALE. 3 UNITS GIVEN. EDUCAITON DONE REGARDING S/S OF HYPOGLYCEMIA, PT VERBALIZES UNDERSTANDING AND STATES HE WILL NOTIFY RN IF HE NOTICES THESE SIGNS. ASSESSMENT DONE. DRESING C/D/I. MINIMAL SERIOUS ANGUINOUS DRAINGE NOTED FROM NORBERTO DRAIN. DRAIN STRIPPED PER MD ORDERS. MEDICATIONS GIVEN. NO ADDITIONAL REQUESTS OR COMPLAINTS. CALL LIGHT WITHIN REACH.
--- NOTE | 2019-05-16 09:50 | NUR ---
PT UP TO AMBULTE IN [facility] X4 LAPS WITH DAUGHTER. PT REPORTS THIS IS HIS 2ND 4 LAPS THIS MORNING. PT REPORTS 2/10 PAIN THAT "IS BETTER AFTER THAT PILL." NO ADDITIONAL REQUESTS OR COMPLANITS. CALL LIGHT WITHIN REACH. DAUGHTER AT BEDSIDE.
--- NOTE | 2019-05-16 12:15 | PATH ---
[facility] [address], [place] [address] Signed SPECIMEN(S): A SIGMOID AND LEFT SPECIMEN SOURCE: A. SIGMOID AND LEFT CLINICAL HISTORY: Chronic recurring diverticulitis. FINAL PATHOLOGIC DIAGNOSIS: Sigmoid colon and portion of left colon, excision: - Diverticulosis. - Negative for abscess in examined section. SARAHA:cml:C2NR MICROSCOPIC EXAMINATION: Histologic sections of all submitted blocks are examined by light microscopy. These findings, together with the gross examination, support the pathologic diagnosis. GROSS DESCRIPTION: The specimen, labeled "TG, sigmoid and left colon," is received in formalin and consists of one unoriented and previously opened portion of large bowel that is 44.8 cm in length and has an average internal circumference of 6.5 cm. The serosal surface is pink and smooth. The attached mesentery is focally congested. The large bowel displays one defect that is 2.8 x 2.5 cm. The mucosal surface is pink and finely granular with the usual folding pattern. Through the sectioning through the bowel wall reveals multiple diverticula. The bowel wall ranges in thickness from 0.7 cm up to 1.8 cm. No areas of perforation are grossly identified. The bowel wall at the previously described defect is pink and grossly unremarkable. The adjacent mesentery is a diffusely hemorrhagic. Thrasher Feeder sections are submitted in three cassettes. Cassette summary: (A1-A2) Diverticula (A3) Bowel wall to defect and underlying mesentery. FB (under the direct supervision of a pathologist) The Gross Description was prepared using a voice recognition system. The report was reviewed for accuracy; however, sound-alike word errors, addition and/or deletions may occur. If there is any PATIENT NAME: DREW WHEATLEY PATHOLOGY DATE OF : 59 REPORT #: [id number] PHYSICIAN: LESLEY FOY PCP: BETTY THOMPSON MD REPORT IS CONFIDENTIAL AND NOT TO BE RELEASED WITHOUT AUTHORIZATION [facility] [address] [place] [address] Signed question about this report, please contact Client Services. PERFORMING LABORATORY: The technical component [place] [address] (Tax Examiner: Indy Gutierrez MD; CLIA# [id number]). Professional interpretation was performed by [facility], [address] [address] (Tax Examiner: Quan Salazar MD; CLIA# [id number]). Diagnostician: Quan Salazar MD Pathologist Electronically Signed 05/16/2019 Copies: ~ PATIENT NAME: DREW WHEATLEY PATHOLOGY DATE OF : 59 REPORT #: [id number] PHYSICIAN: LESLEY FOY PCP: BETTY THOMPSON MD REPORT IS CONFIDENTIAL AND NOT TO BE RELEASED WITHOUT AUTHORIZATION
--- NOTE | 2019-05-16 12:23 | NUR ---
NOON ASSESSMENT AND MEDICAITONS DUE. PT REPORTS 3/10 PAIN, TYLENOL GIVEN. PT FINISHED WITH LUNCH W/O NAUSEA. DRESSING C/D/I, NORBERTO DRAIN CONTINUES WITH MINIMAL SERIOANGUNIOUS DRAINAGE. PT VISITING WITH DAUGHTER. NO REQUESTS OR COMPLAINTS. PT STATES HE PLANS TO AMBULATE AGAIN NOW. CALL LIGHT WITHIN REACH.
--- NOTE | 2019-05-16 13:30 | NUR ---
DRESSING REMOVED PER MD ORDER. INCISION EDGES WELL APROXIMATED, STERI STRIPS. INTACT. MINIMAL OLD RED DRAINAGE NOTED. PT UP TO SHOWER PER MD ORDER. PT STEADY ON FEET. DAUGHTER AT BEDSIDE. PT DEMONSTRATES USE OF CALL LIGHT.
--- NOTE | 2019-05-16 14:28 | NUR ---
PT RESTING IN BED. HE HAS HAD SEVERAL TIMES UP AND AMBULATING IN HALLS. HE IS PLEASED WITH HIS PROGRESS SO FAR. HAD GOOD NIGHTS REST, STRUGGLING WITH WANTING TO GO FASTER THAN IS BODY IS READY TO.PT'S DAUGHTER HERE, EXTENDED ABLESSING. WILL CONTINUE TO FOLLOW NEEDED
--- NOTE | 2019-05-16 14:45 | NUR ---
THIS RN INFORMED BY SHOT COAT TENDER THAT PTS HR IS LOW. THIS RN TO BEDSIDE. PT ASYMPTOMATIC. DENIES DIZZINESS AND OTHER S/S OF LOW HR AT THIS TIME. APICAL PULSE TAKEN = 48. MD NOTIFIED. ORDERS TO CONTINUE TO MONITOR AT THIS TIME. METOPROLOL DOSAGE CHANGED, WITH ORDERS TO HOLD DOSE IF HR IS LESS THAN 50 BMP. FALL PRECATUIONS REVIEWED WITH PT. PT VERBALIZES UNDERSTANDING AND STATES HE WILL USE CALL LIGHT WHEN NEEDING TO GET UP. DAUGHTER AT BEDSIDE. CALL LIGHT WITHIN REACH.
--- NOTE | 2019-05-16 16:54 | NUR ---
AFTERNOON ASSESSMENT DUE. PT RESTING IN BED. PT REPORTS 3/10 PAIN AND REQUESTS IBUPROFEN. SEE MAR FOR MEDICATION GIVEN. WOUND C/D/I, WITH STERI STRIPS INTACT. EDGES APROXIMATED. 20ML SERIOUSANGUINOU DRAINAGE TAKEN FROM NORBERTO DRAIN. PT DENIES NAUSEA. MASHED POTATOES AND YOUGURT ORDERED FOR DINNER. WATER REFILLED. PT STATES HE IS GETTING UP FOR ANOTHER AMBULATION AROUND [facility]. NO ADDITIONAL REQUESTS OR COMPLAINTS. DAUGHTER AT BEDSIDE. CALL LIGHT WITHIN REACH.
--- NOTE | 2019-05-16 19:00 | NUR ---
PT POST OP DAY TWO FOR SIGMOID COLECTOMY. BOWEL MOVMENTS X3 THIS SHIFT. PT TOELRATING 60G CARB DIET WITHOUT NAUSEA. 2-3/ PAIN THIS SHIFT. MOTRIN AND TYLENOL ALTERED FOR PAIN CONTROL WITH GOOD RESULTS. MEPLEX/OPSITE DRESSING REMOVED THIS SHIFT. PT UP TO SHOWER. BRADYCARDIA THIS SHIFT. CARDIAC MEDICATIONS ADJUSTED. PT ANTICIPATING DISCHARGE TOMORROW. VOIDING QUANTITY SUFFICIENT. PT USES CALL LIGHT APPROPRIATLY.
--- NOTE | 2019-05-16 19:28 | NUR ---
REPORT RECEIVED, PT RESTING IN BED, FAMILY AT BEDSIDE, RATES PAIN AT 2/10, DENIES ANY PRN PAIN MEDICATION, NO NEEDS AT THIS TIME, CALL LIGHT WITHIN REACH. FALL PRECAUTIONS IN PLACE.
--- NOTE | 2019-05-16 20:45 | NUR ---
PT RESTING IN BED, AOX4, APPROPRIATE, PT'S VSS, PT'S HR NOTED TO BE 49, DISCUSSED WITH MANAGER RETAIL SALES WELL CNC PROGRAMMER, PER EMAR/MD ORDER PT'S SCHEDULED METOPROLOL NOT GIVEN, PT ASYMPTOMATIC, DENIES LIGHT HEADEDNESS OR DIZZINESS, NO PALIPITATIONS, PT ON RA, NO C/O SOB/CP, NATANAEL NOTIFIED WHEN HE CALLED THE FLOOR AT 2150, NO NEW ORDERS PT GIVEN PRN TYLENOL RELATED TO 3/10 PAIN, PT'S MIDLINE INCISION WITH STERI STRIPS, NO NEW DRG, INCISION WELL APPROXIMATED, NORBERTO DRAIN EMPTIED OF 12 MLS OF SEROSANGUINEOUS DRG, BT ACTIVE, PT DENIES ANY FURTHER NEEDS AT THIS TIME, CALL LIGHT WITHIN REACH. FALL PRECAUTIONS IN PLACE.
--- NOTE | 2019-05-16 21:01 | NUR ---
CHARGE NURSE ROUNDING. pt RESTING WITH EYES CLOSED, RESPIRATIONS REGULAR. WHITEBOARD UPDATED. CALL LIGHT WITHIN REACH.
--- NOTE | 2019-05-17 03:51 | NUR ---
PT RESTING IN BED, NO NEEDS AT THIS TIME, CALL LIGHT WITHIN REACH. FALL PRECAUTIONS IN PLACE.
--- NOTE | 2019-05-17 04:05 | NUR ---
CALL LIGHT ANSWERED, PT C/O 5/10 ABD PAIN, PT GIVEN PRN IBUPROFEN PER EMAR. PT DENIES FURTHER NEEDS, PT REMAINS RESTING IN BED, NO C/O SOB/CP, ASSESSMENT COMPLETE, CALL LIGHT WITHIN REACH. FALL PRECAUTIONS IN PLACE.
--- NOTE | 2019-05-17 05:13 | NUR ---
PT AOX4, APPROPRIATE, VSS, UO QS, PT RESTED WELL IN BED, PT RECEIVED PRN PAIN MED X2 THIS SHIFT, PT TOLERATING NON OPIOID PAIN MGMT WELL, MIDLINE INCISION INTACT, NO NEW DRG, NORBERTO DRAIN TO LLQ, SMALL AMOUNT OF SEROSANGUINEOUS DRG THIS SHIFT. BT ACTIVE. PT ON RA, NO C/O SOB/CP, PT TOLERATING DIET WELL. PT INDEPENDENT IN ROOM, USES CALL LIGHT APPROPRIATELY.
--- NOTE | 2019-05-17 07:40 | NUR ---
PATIENT RESTING IN BED. RN IN ROOM. PATIENT'S REFUSED TO TAKE A SHOWER TODAY BECAUSE HE THINKS MAYBE HE WILL BE DISCHARGED AND HE PREFERS TO TAKE A SHOWER AT HOME. CALL LIGHT WITHIN REACH. NO OTHER NEEDS AT THIS TIME
--- NOTE | 2019-05-17 07:56 | NUR ---
PT IS AWAKE EARLY AND IN GOOD SPIRITS, REPORTS GOOD PAIN RELIEF FROM IBUPROFEN TAKEN EARLIER. LOOKING FORWARD TO BREAKFAST, HOPES TO GO HOME TODAY, NORBERTO PATENT WITH SMALL AMOUNT RED SERROUS FLUID . INCISION WELL APPROXIMATED. DENIES ANY NEEDS AT THIS TIME.
--- NOTE | 2019-05-17 09:14 | NUR ---
PATIENT RESTING IN BED. VITAL SIGNS AND I&O DONE. ICE WATER GIVEN. CALL LIGHT WITHIN REACH. NO OTHER NEEDS AT THIS TIME
--- NOTE | 2019-05-17 10:34 | NUR ---
PT IS WALKING LOOP IN [place] SEVERAL TIMES WITH DAUGHTER. REMAINS IN GOOD SPIRITS. CONT. TO DENY NAUSEA OR PAIN.
[2019-05-17] MEDS ORDERED: IBUPROFEN600 MG PO (11:27)
[2019-05-17] MEDS ORDERED: OFIRMEV1000 MG/10 IV (11:27)
--- NOTE | 2019-05-17 11:44 | NUR ---
DR SANTOYO IN TO SEE PT, NORBERTO WAS DISCONTINUED. DISCHARGE TO HOME AGREED, DAUGHTER AT BEDSIDE.
--- NOTE | 2019-05-17 12:43 | NUR ---
PT RESTING IN BED, WATCHING TV. HAD MUCH BETTER NIGHT, PLANNING ON DC TODAY. HAD POSITIVE DISCUSSION ABOUT PT'S LIFE, SURGERY AND HOW THIS HAS CHANGED HIS LIFE. PT ALSO RECENTLY QUIT SMOKING AND IS READY TO TURN ANOTHER PAGE IN THE CHAPTER OF HIS HEALTH. EXTENDED A BLESSING, WILL FOLLOW NEEDED
--- NOTE | 2019-05-17 19:06 | OR ---
[facility] [address], [place] [address] Signed DATE OF OPERATION: 05/14/2019 SURGEON: Esdras Santoyo MD PREOPERATIVE DIAGNOSES: 1. Chronic recurrent sigmoid diverticulitis. 2. Morbid obesity. POSTOPERATIVE DIAGNOSES: 1. Chronic recurrent sigmoid diverticulitis. 2. Morbid obesity. PROCEDURE PERFORMED: Left hemicolectomy with mobilization of splenic flexure and side-to-end coloproctostomy prolonged complicated, difficult. ANESTHESIA: General endotracheal. Prudencio Topete CRNA and preoperative TAP block. INDICATION: This 64-year-old morbidly obese white male is a patient of Dr. Thompson, and has had chronic recurrent bouts of left lower abdominal pain, highly consistent with acute diverticulitis. He has recovered well with antibiotic regimens. His last episode was approximately a month ago. Consideration has been made for sigmoid and left colectomy as appropriate for chronic recurrent diverticulitis. CT scan findings in the past have confirmed the diverticular problem. He underwent colonoscopy yesterday by me showing diverticulosis but no sign of polyps or colitis. He was admitted to undergo left colectomy or sigmoid colectomy depending on the extent of disease, as well as other indicated procedures. He understands the risks of bleeding, infection, anastomotic failure, and other unforeseen complications and wished to proceed. FINDINGS: The patient had impressive obesity of the abdominal wall, but more importantly of the mesentery. Extreme visceral fat was noted. On that basis, the area of most clear induration of the colon from recurrent diverticulitis could not be as easily identified as usual. On that basis, an extended left colectomy was performed with mobilization of splenic flexure allowing for side-to-end coloproctostomy. A tension-free anastomosis was noted. Upon opening of the specimen, he had numerous diverticula, but one Electronically Signed By: ESDRAS SANTOYO MD 05/17/19 1906 PATIENT NAME: DREW WHEATLEY OPERATIVE REPORT DATE OF : 59 REPORT #: [id number] PHYSICIAN: ESDRAS SANTOYO MD PCP: ROBERT THOMPSON MD REPORT IS CONFIDENTIAL AND NOT TO BE RELEASED WITHOUT AUTHORIZATION [facility] [address] [place], [place] [address] Signed particular very large diverticulum with penetration into the mesocolon, most likely the source of his recurrent problem from time to time. Due to the intraabdominal obesity, the gallbladder and liver could not be entirely evaluated, but there appeared to be no sign of acute inflammatory change of the gallbladder though gallbladder stones were seen in the past. DESCRIPTION OF PROCEDURE: The patient was brought to the operating room, given a general endotracheal anesthetic. Preoperative antibiotic cefotetan had been given as well as a full bowel prep and oral antibiotics. Subcutaneous heparin had been administered. Sequential compression device stockings were used. A Vale catheter was placed. The abdomen was clipped and prepared with chlorhexidine solution and draped sterilely. An infraumbilical incision was made, and given his obesity, extended slightly above it as well. Thick abdominal wall pannus was noted. The abdomen was entered without problem showing no sign of ascites or carcinomatosis. Quite notable was visceral fat including impressive mesenteric fat of the sigmoid and left colon. Small bowel loops were normal. The Bookwalter retractor with an security escort was affixed to the table. The small bowel was packed to the right side of the abdomen and the upper abdomen, exposing well the left colon and sigmoid. The white line of Toldt was incised and using blunt electrocautery dissection the left colon and sigmoid mobilized to the midline. Dissection was carried inferiorly where coalescence of the teniae were noted, designating the rectum. He had numerous small diverticula noted on the free portion of the sigmoid and rectosigmoid area, but the thickening of the sigmoid mesentery and left colonic mesentery was such that one could not easily define the area of most common recurrent inflammation. The sigmoid mesentery was incised, and application of tonsil clamps to vascular pedicles allowing for ligation with 0 silk ties. Once the sigmoid and distal portion of the left colon was well mobilized, further dissection more proximally showed thickening of the colon and mesocolon in the upper to mid left colon. On that basis, the splenic flexure was mobilized with blunt electrocautery dissection, fully mobilizing the transverse colon and left colon into view. An area of the mid descending colon was deemed highly probable to have disease as well, and on that basis, transection was designated for more proximal, essentially just distal to the splenic flexure proper. The mesocolon was incised and divided and ligated with silk ties, and although generous mesentery was taken, it was not taken down to the aorta as that would have been unnecessary under the circumstances of diverticular disease or other malignancy. The colon thus mobilized was freely able to reach to the pelvis to allow for anastomosis. The mesocolon of the sigmoid and proximal rectum was divided with electrocautery and secured with silk ties as appropriate. A transverse bronchus clamp was applied to the upper to mid rectum, as an area designated for transection. A clamp was applied proximal to this clamp and the rectosigmoid divided. Using a 75 mm OLGA stapling device, the proximal and descending colon was transected transversely. Electronically Signed By: ESDRAS SANTOYO MD 05/17/19 1906 PATIENT NAME: DREW WHEATLEY OPERATIVE REPORT DATE OF : 59 REPORT #: [id number] PHYSICIAN: ESDRAS SANTOYO MD PCP: ROBERT THOMPSON MD REPORT IS CONFIDENTIAL AND NOT TO BE RELEASED WITHOUT AUTHORIZATION [facility] [address] [place], [place] [address] Signed The remaining colon easily reached the rectal stump thanks to good mobilization of the splenic flexure. Plans were then made for anastomosis. The area was isolated with laparotomy pads and a side-to-end coloproctostomy undertaken in a two layer technique of interrupted 3-0 silk suture. The bowel prep was good. There was no egress of liquid stool, but there was some mucoid bile-stained stool noted in both proximal and distal segments. At conclusion of anastomosis, there was a good watertight closure with no evidence of leakage. Isolating laparotomy packs were removed and gloves were changed for all members of the team. Irrigation was undertaken. Through a left-sided stab incision, a 7 mm flat Carmelo drain was placed in the left pericolic gutter and down into the pelvis. The midline fascia was then reapproximated with running bidirectional #1 PDS suture. Subcutaneous tissue was irrigated and the skin closed with running subcuticular 3-0 Vicryl. Steri-Strips were applied as was a Mepilex silver sponge dressing and an OpSite. The drain was attached to bulb suction. BLOOD LOSS: Estimated at 150 mL. Sponge, needle, and instrument counts reported as correct x3. The operation was rather prolonged, complicated, and difficult based on his abdominal and visceral fat, taking certainly 2 to 3 times longer than usual. Esdras Santoyo MD JM/MODL /[id number] cc: Robert Thompson MD Copies: ROBERT THOMPSON MD Electronically Signed By: ESDRAS SANTOYO MD 05/17/19 1906 PATIENT NAME: DREW WHEATLEY OPERATIVE REPORT DATE OF : 59 REPORT #: [id number] PHYSICIAN: ESDRAS SANTOYO MD PCP: ROBERT THOMPSON MD REPORT IS CONFIDENTIAL AND NOT TO BE RELEASED WITHOUT AUTHORIZATION [facility] [address] [place], [place] [address], [place] [address] Signed ~ Electronically Signed By: ESDRAS SANTOYO MD 05/17/19 1906 PATIENT NAME: DREW WHEATLEY OPERATIVE REPORT DATE OF : 59 REPORT #: [id number] PHYSICIAN: ESDRAS SANTOYO MD PCP: ROBERT THOMPSON MD REPORT IS CONFIDENTIAL AND NOT TO BE RELEASED WITHOUT AUTHORIZATION
--- NOTE | 2019-05-18 15:48 | DS ---
[facility] [address] [place], [place] [address] Signed ADMISSION DATE: 05/14/2019 DISCHARGE DATE: 05/17/2019 REASON FOR ADMISSION: This morbidly obese 64-year-old white man has had recurrent bouts of diverticulitis. The day prior to his admission now he underwent colonoscopy confirming diverticulosis, no evidence of active inflammation, and no sign of polyps or cancer. He is admitted at this time to undergo left colectomy for chronic recurrent severe diverticulitis. PERTINENT PHYSICAL EXAM: GENERAL: Obese white man without sign of distress. NECK: Trachea midline. CHEST: Clear. HEART: Regular without murmur. ABDOMEN: Obese, but soft. No palpable mass or tenderness. EXTREMITIES: Showing no clubbing, cyanosis, or edema. HOSPITAL COURSE: On May 14, 2019, he underwent open left hemicolectomy with mobilization of splenic flexure and side-to-end coloproctostomy. The operation was prolonged, complicated, and difficult based on his obesity. Indeed, his mesentery was impressively obese. The resected specimen includes essentially all of the left colon, sigmoid, and proximal rectum, and a side-to-end coloproctostomy was performed. Examination of the specimen showed multiple diverticula, but one in particular in the mid descending colon which likely accounted for most of his recurrent symptoms. The mesentery was so fatty infiltrated, it was not easy to see clinically until resection was complete. A TAP block was used preoperatively and he was maintained on a minimal opiate approach postoperatively. Intravenous Tylenol and Toradol were initiated and clear liquid diet initiated on night of operation and out of bed ambulating the night of operation. By the next day, he was tolerating liquid diet quite well, did have bowel movement. He had progressive improvement on 2nd postoperative day, transitioned to a solid diet, which he tolerated completely well. He may well have been able to be discharged on the 2nd day, but given his obesity and distance to travel to home was kept until postop day #3. On postop day #3, drain that was placed in the pelvis was removed that showed only serosanguineous fluid. At the time of discharge, he is ambulating well, tolerating a regular diet, has normal bowel movements, minimal incisional pain, the wound is healing well. FOLLOWUP PLAN: He is to return to see me in approximately 4 weeks. Electronically Signed By: ESDRAS SANTOYO MD 05/18/19 1548 PATIENT NAME: DREW WHEATLEY DISCHARGE SUMMARY DATE OF : 59 REPORT #: [id number] PHYSICIAN: ESDRAS SANTOYO MD PCP: ROBERT THOMPSON MD REPORT IS CONFIDENTIAL AND NOT TO BE RELEASED WITHOUT AUTHORIZATION [facility] [address] [place], [place] [address] Signed DISCHARGE MEDICATIONS: 1. His discharge medications will include: Tylenol 1000 mg p.o. q.6 hours p.r.n. pain, #90, refill one. 2. Motrin 600 mg p.o. q.6 hours p.r.n. pain #90, refill one. He will resume his usual medication includin. Glimepiride 2 mg tablets one tablet p.o. daily. 2. Atorvastatin 40 mg p.o. at bedtime. 3. Fiber supplement 500 mg two tablets p.o. b.i.d. 4. Metoprolol 100 mg half tablet p.o. b.i.d. 5. Aspirin 81 mg p.o. daily. 6. Probiotic bacillus coagulants, one tab chewable three times a day as desired. 7. Vitamin B12 250 mcg tablet b.i.d. 8. Multivitamin Men's one p.o. daily. 9. Losartan 25 mg p.o. at bedtime. DISCHARGE DIAGNOSES: 1. Chronic recurrent left-sided diverticulitis, status post open colectomy with side-to-end coloproctostomy. 2. Eqd-yponlyt-gdwmsjciz diabetes mellitus. 3. Morbid obesity. 4. Hypertension. 5. 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 Esdras Santoyo MD JM/MODL /[id number] cc: Robert Thompson MD Copies: ROBERT THOMPSON MD Electronically Signed By: ESDRAS SANTOYO MD 05/18/19 1548 PATIENT NAME: DREW WHEATLEY DISCHARGE SUMMARY DATE OF : 59 REPORT #: [id number] PHYSICIAN: ESDRAS SANTOYO MD PCP: ROBERT THOMPSON MD REPORT IS CONFIDENTIAL AND NOT TO BE RELEASED WITHOUT AUTHORIZATION [address] [address] Signed ~ Electronically Signed By: ESDRAS SANTOYO MD 05/18/19 1548 PATIENT NAME: DREW WHEATLEY DISCHARGE SUMMARY DATE OF : 59 REPORT #: [id number] PHYSICIAN: ESDRAS SANTOYO MD PCP: ROBERT THOMPSON MD REPORT IS CONFIDENTIAL AND NOT TO BE RELEASED WITHOUT AUTHORIZATION
== END 2019-05-17 12:10 | disposition home or self-care (01) | DRG 331 ==
LOC: DSVR 05-14 07:45 → MS 05-14 09:30
PROVIDERS: ADMIT Surgery
PROC: 3E0T3BZ Introduction of Anesthetic Agent into Peripheral Nerves and Plexi, Percutaneous Approach (ICD-10-PCS; 2019-05-14)
PROC: 0DTG0ZZ Resection of Left Large Intestine, Open Approach (ICD-10-PCS; principal; 2019-05-14 09:30)
DX: K57.32 Diverticulitis of large intestine without perforation or abscess without bleeding (principal); G89.18 Other acute postprocedural pain; G47.33 Obstructive sleep apnea (adult) (pediatric); E66.01 Morbid (severe) obesity due to excess calories; E11.9 Type 2 diabetes mellitus without complications; I10 Essential (primary) hypertension; Z88.1 Allergy status to other antibiotic agents; Z79.84 Long term (current) use of oral hypoglycemic drugs; Z79.82 Long term (current) use of aspirin; Z79.899 Other long term (current) drug therapy; Z85.46 Personal history of malignant neoplasm of prostate; Z87.891 Personal history of nicotine dependence
CPT/HCPCS: 00790; 36415; 64488; 76942; 80053; 85025; 93005; 93010; J0131; J0694; J1100; J1644; J1815; J1885; J2250; J2405; J2704; J2795; J3010; J7060; J7120; J7121

== ENCOUNTER 2020-10-16 08:34 | Day surgery (SDC) | payer OTHER ==
[~2020-10-16] VITALS: Ht 170.2 cm; Wt 112.7 kg
[~2020-10-16 08:34] MED LIST changes: +NOVOLIN N100 UNIT/2 SQ; +OFIRMEV1000 MG/10 IV
[2020-10-16] MEDS ORDERED: MONTELUKAST SOD10 MG PO (09:15)
[2020-10-16] MEDS ORDERED: METOPROLOL SUC100 MG PO (09:15)
[2020-10-16] MEDS ORDERED: VITAMIN D3100 MCG PO (09:16)
[2020-10-16] MEDS ORDERED: ZINC50 M2 PO (09:16)
[2020-10-16] MEDS ORDERED: ALLER-FLO15.8 ML NAS (09:17)
[2020-10-16] MEDS ORDERED: VITAMIN C1000 MG PO (09:17)
[2020-10-16] MEDS ORDERED: ALLERCLEAR10 MG PO (09:17)
--- NOTE | 2020-10-16 12:21 | NUR ---
1050: CHECKED ON PATIENT AND . NO NEEDS AT THIS TIME. PATIENT WATCHING TV. CALL LIGHT WITHIN REACH. 1145: BLOOD SUGAR CHECKED. CBG 142 MG/DL. REPORTED TO SOLE TIER. PATIENT HAS NO NEEDS AT THIS TIME. CALL LIGHT WITHIN REACH.
--- NOTE | 2020-10-16 14:06 | NUR ---
10/16/20 1406 Ranjana Ware 1358 PATIENT ARRIVES TO PACU UNRESPONSIVE TO PAIN. ORAL AIRWAY IN PLACE. ALSO REQUIRES RN TO HOLD JAW THRUST. WITH AIRWAY SUPPORT, RESP EVEN AND UNLABORED, MASK AT 6 LITERS. 1402 PATIENT OPENS EYES WITH VERBAL STIMULI. FOLLOWS COMMANDS TO OPEN MOUTH. RESP EVEN AND UNLABORED, MASK OFF. ROOM AIR SATS >93%. PATIENT DENIES PAIN OR NAUSEA.
[2020-10-16] MEDS ORDERED: BACTRIM DS TAB1 EACH PO (14:17)
[2020-10-16] MEDS ORDERED: TYLENOL EXTRA500 MG PO (14:18)
[2020-10-16] MEDS ORDERED: MOTRIN IB200 MG PO (14:18)
[2020-10-16] MEDS ORDERED: PERCOCET 7.5-31 EACH PO (14:19)
--- NOTE | 2020-10-16 14:36 | NUR ---
PATIENT BACK IN DAY SURGERY ROOM FROM PACU. DENIES PAIN. RIGHT GROIN DRESSING CDI. VS CHECKED. PATIENT TOLERATING ICE WATER. IV SITE WNL. SCDs ON. AT BEDSIDE. CALL LIGHT WITHIN REACH. LUNCH ORDERED FOR PATIENT.
--- NOTE | 2020-10-16 15:28 | NUR ---
PATIENT TOLERATED SOUP AND SANDWICH LUNCH. DISCHARGE INSTRUCTIONS GIVNE TO PATIENT AND . PATIENT ASSISTED OOB AND TO BATHROOM. GAIT STEADY.
--- NOTE | 2020-10-16 16:16 | NUR ---
1540: PATIENT VOIDED WITHOUT DIFFICULTY. GAIT STEADY BACK TO ROOM. IV DC'D WNL. TIP INTACT. DRESSING APPLIED. PATIENT DRESSED WITH HELP FROM . PATIENT DISCHARGED TO HOME WITH VIA WHEELCHAIR.
--- NOTE | 2020-10-17 10:16 | OR ---
[facility] [address] [place], [place] [address] Signed DATE OF OPERATION: 10/16/2020 SURGEON: Esdras Santoyo MD PREOPERATIVE DIAGNOSES: 1. Recurrent right groin abscess, distant history of multiple drainages and debridement of implanted mesh from distant past. 2. Insulin-dependent diabetes mellitus and obesity. POSTOPERATIVE DIAGNOSES: 1. Recurrent right groin abscess, distant history of multiple drainages and debridement of implanted mesh from distant past. 2. Insulin-dependent diabetes mellitus and obesity. 3. No evidence of retained foreign body currently. PROCEDURE: 1. Exam under anesthesia. 2. Drainage, debridement and curettage of deep right groin abscess with placement of yellow vessel loop type Pezzer catheter. ANESTHESIA: General endotracheal, Esdras Becker CRNA INDICATIONS: This 65-year-old white man is a patient of Dr. Thompson. He is well known to me from the past having undergone multiple debridements and drainage of infected right groin related to implantation of mesh with hernia repair by Dr. Bo Lobato a few years ago. His last episode nearly two years ago allowed for complete debridement of mesh and retained suture and he has been doing well until just before [place] at which time, he began having swelling, erythema and found by Dr. Thompson in [place] to have recurrent abscess. This was incised and drained and local wound care initiated. He continues to have purulent drainage from the site. I have recommended exam under anesthesia, debridement and hopefully discovery of a retained foreign body that may account for his recurrent abscess problem. He understands the risks of bleeding, infection, need for other indicated procedures and of course failure to cure the problem definitively despite efforts to do so. FINDINGS: Purulent material was noted in the region of the medial aspect of a groin incision from the past. Gelatinous fibrinous material was noted in the depths of the wound which Electronically Signed By: ESDRAS SANTOYO MD 10/17/20 1016 PATIENT NAME: DREW WHEATLEY OPERATIVE REPORT DATE OF : 59 REPORT #: [id number] PHYSICIAN: ESDRAS SANTOYO MD PCP: ROBERT THOMPSON MD REPORT IS CONFIDENTIAL AND NOT TO BE RELEASED WITHOUT AUTHORIZATION [facility] [address] [place], [place] [address] Signed extended deep into the extraperitoneal space so far as could be told. I saw no evidence of retained mesh or suture. Complete debridement was undertaken and placement of a yellow vessel loop with Pezzer was placed. DESCRIPTION OF PROCEDURE: The patient was brought to the operating room, given a general endotracheal anesthetic. Preoperative antibiotic Ancef was given. Sequential compression device stockings were used and heparin subcutaneously administered. The right lower abdomen was clipped and prepared with a DuraPrep type solution and draped sterilely. A small hole draining purulent material was identified and probed and purulent material was noted oozing from the deep subcutaneous space. The incision was made in continuity with this site which was in continuity with previous incision medially. Dissection was carried through the subcutaneous tissue with electrocautery. A gelatinous pathway was followed down to the abdominal wall and what appeared to be the inguinal ligament. This tissue was debrided with hemostat device and Gram stain and cultures were obtained of the purulent material. Electrocautery was used to incise the tissue to the inflammatory tract. The surrounding soft tissue was quite firm and dense as might be expected from prior interventions. Continued debridement was taken deep into what would be considered the properitoneal space. Despite irrigation and extreme efforts, no retained foreign body was noted, specifically no suture or mesh material. Consideration was made this may represent simple retention of infected properties from a biofilm or other similar entity. Once irrigation and debridement was completed and noting a somewhat deep sinus space, a yellow vessel loop was tied with multiple knots in the distal portion and insinuated into the depths of the wound, bringing the tail of the drain out to the skin. The subcutaneous tissue was irrigated further and then closed with interrupted 2-0 Vicryl. No efforts were made for specific skin closure otherwise. Sterile gauze was applied after the drain was trimmed to the appropriate length. The patient was ultimately extubated and transferred to the recovery room in good condition having suffered no complications. Sponge, needle, and instrument counts were reported as correct x3. MD SRIDHAR Cornell/MODL /[id number] Electronically Signed By: ESDRAS SANTOYO MD 10/17/20 1016 PATIENT NAME: DREW WHEATLEY OPERATIVE REPORT DATE OF : 59 REPORT #: [id number] PHYSICIAN: ESDRAS SANTOYO MD PCP: ROBERT THOMPSON MD REPORT IS CONFIDENTIAL AND NOT TO BE RELEASED WITHOUT AUTHORIZATION [address] [address] Signed cc: Robert Thompson MD Copies: ROBERT THOMPSON MD ~ Electronically Signed By: ESDRAS SANTOYO MD 10/17/20 1016 PATIENT NAME: DREW WHEATLEY TIERRA OPERATIVE REPORT DATE OF : 59 REPORT #: [id number] PHYSICIAN: ESDRAS SANTOYO MD PCP: ROBERT THOMPSON MD REPORT IS CONFIDENTIAL AND NOT TO BE RELEASED WITHOUT AUTHORIZATION
== END 2020-10-16 15:40 | disposition home or self-care (01) ==
LOC: DS 08:34 → OPS 08:34
PROVIDERS: ATTEND Surgery
PROC: 0H9AXZZ Drainage of Inguinal Skin, External Approach (ICD-10-PCS; principal; 2020-10-16 10:00)
DX: L02.214 Cutaneous abscess of groin (principal); E11.9 Type 2 diabetes mellitus without complications; E66.9 Obesity, unspecified
CPT/HCPCS: J0330; J0690; J1100; J1644; J1885; J2250; J2405; J2704; J2765; J3010; J7121

== ENCOUNTER 2021-03-16 07:11 | Day surgery (SDC) | payer OTHER ==
[~2021-03-16] VITALS: Ht 170.2 cm; Wt 112.7 kg
[~2021-03-16 07:11] MED LIST changes: +ALLER-FLO15.8 ML NAS; +ALLERCLEAR10 MG PO; +AMARYL2 MG PO; +BACTRIM DS TAB1 EACH PO; +FLAGYL500 MG PO; +LANTUS100 UNITS/ SUB-Q; +METOPROLOL SUC100 MG PO; +MONTELUKAST SOD10 MG PO; +MOTRIN IB200 MG PO; +NEOMYCIN SULFA500 MG PO; +PERCOCET 7.5-31 EACH PO; +TYLENOL EXTRA500 MG PO; +VITAMIN C1000 MG PO; +VITAMIN D3100 MCG PO; +ZINC50 M2 PO
[2021-03-16] MEDS ORDERED: CLEOCIN HCL300 MG PO (07:44)
--- NOTE | 2021-03-16 08:07 | NUR ---
PT ALERT, ORIENTED AND SUPPORTED BY HIS . CHERIE MORALES FINISHING PREPPING PT. GAVE ENCOURAGEMENT AND BLESSING. WILL FOLLOW
--- NOTE | 2021-03-16 08:54 | NUR ---
REPORT GIVEN TO WHIT[employer] SUPERVISOR. PRE OP ABX GIVEN. PT TO OR AT THIS TIME
--- NOTE | 2021-03-16 11:20 | NUR ---
03/16/21 1120 Araceli Meredith 1115-PATIENT ARRIVED TO PACU ON 6L MASK RR EVEN NONAROUSABLE. SB HR 50'S IVF INFUSING. DRESSING TO RIGHT GROIN CDI WITH NORBERTO DRAIN IN PLACE. GLUCOSE CHECKED 203.
[2021-03-16] MEDS ORDERED: AMOX TR-K CLV1 EAC1 PO (12:06)
[2021-03-16] MEDS ORDERED: OXYCODON-ACETA1 EAC2 PO (12:07)
[2021-03-16] MEDS ORDERED: ACETAMINOPHEN500 MG PO (12:08)
--- NOTE | 2021-03-16 12:15 | NUR ---
PT ARRIVED FROM PACU. REPORT RECEIVED FROM CHERIE WISDOM. PT DENIES PAIN AND NAUSEA. SCD'S IN PLACE. DRESSING TO RIGHT INGUINAL/GROIN AREA C/D/I. NORBERTO DRAIN IN PLACE, SCANT AMOUNT OF SERIOUSANGUINOUS DRAINAGE NOTED IN NORBERTO BULB, SCUTION IN PLACE, SIGHT COVERED BY SURGICAL DRESSING. PT ON 2L O2 BY NC WITH O2 SATURATIONS ABOVE 94%. PT WEANED TO ROOM AIR AND TOLERATING ROOM AIR WITH O2 SATURATIONS ABOVE 92%. PT REMAINS ON ROOM AIR AT THIS TIME. ICE WATER AND PUDDING PROVIDED. PT DENIES ADDITIONAL REQUESTS OR COMPLAINTS. AT BEDSIDE AND STATES THEIR QUESTIONS HAVE BEEN ANSWERED. BED RAILS UP. CALL LIGHT WITHIN REACH.
--- NOTE | 2021-03-16 12:56 | NUR ---
DR. SANTOYO CONSULTED REGARDING ADDITONAL DETAILS FOR DISCHARGE ORDERS. DR. SANTOYO STATES OK FOR PT TO SHOWER AT ANYTIME, TAKE STOOL SOFTENERS IF NEEDED, AND FOLLOW UP OUT SIDE THE 10 DAY RANGE IS OK. ORDERS ADJUSTED.
--- NOTE | 2021-03-16 13:09 | NUR ---
VITALS AND ASSESSMENT DUE. PT CONTINUES TO DENY PAIN AND NAUSEA. DRESSING REMAINS C/D/I WITH <10ML SERIOUANGUINOUS DRAINGE NOTED IN NORBERTO BULB. VITAL SIGNS STABLE. PT TOLERATING PO FOOD AND FLUIDS. EDUCATION DONE WITH PT REGARDING EMPYING NORBERTO BULB. PT DEMONSTRATES UNDERSTANDING. 9ML REMOVED FROM NORBERTO BULB. PT TOLERATING ROOM AIR WITH O2 SATURATIONS ABOVE 92%. NO ADDITIONAL REQUESTS OR COMPLAINTS. CALL LIGHT WITHIN REACH. BED RAILS UP.
--- NOTE | 2021-03-16 13:46 | NUR ---
PT STATES HE IS READY FOR DISCHARGE. PT UP WITH STAND BY ASSIST, AMBULATES IN [place], STEADY ON FEET. PT VOIDS 150ML CONCENTRATED YELLOW URINE. PT AMBULATES BACK TO ROOM WITH STAND BY ASSIT. PT DRESSES WITH ASSISTANCE FROM . DRESSIGN REMAINS C/D/I. NORBERTO DRAIN SHOWS <5ML SERIOUSANGUINOUS DRAIANGE. IV DC'D, WNL, GAUZE AND COBAN APPLIED. DISCHARGE INSTRUCTIONS REVIEWED WITH PT AND PTS . PT AND VERBALIZE UNDERSTANDING OF INSTRUCTIONS, NORBERTO DRAIN EMPTYING, MEDICATIONS, FOLLOW UP APPOINTMENT, ACTIVITY RESTRICTIONS, AND WHEN TO CALL THE DOCTOR. PT TRANSFERS SELF TO WHEELCHAIR AND IS WHEELED FROM DAY SURGERY, NO ADDITIONAL REQUESTS OR CONCERNS.
--- NOTE | 2021-03-17 15:49 | PATH ---
[facility] [address], [place] [address] Signed SPECIMEN(S): A INFECTED MESH, RIGHT GROIN SPECIMEN(S): B ADDITIONAL SUBQ TISSUE SPECIMEN SOURCE: A. INFECTED MESH, RIGHT GROIN B. ADDITIONAL SUBQ TISSUE CLINICAL HISTORY: Right groin wound/abscess examination/debridement. FINAL PATHOLOGIC DIAGNOSIS: A. Infected mesh, right groin: - Dense fibrotic tissue with adipose tissue and areas of acute and chronic inflammation. - Polarizable foreign body material is identified, consistent with mesh material. B. Additional subcutaneous tissue: - Skin and subcutaneous adipose tissue with fibrosis. TWK:[facility]:C2NR MICROSCOPIC EXAMINATION: Histologic sections of all submitted blocks are examined by light microscopy. These findings, together with the gross examination, support the pathologic diagnosis. GROSS DESCRIPTION: Two specimens are received in two containers, labeled "TG." A. The specimen, labeled "TG," and designated on the requisition "right groin infected mesh," is received in formalin and consists of fatty fibrous tissue with embedded plastic mesh material measuring 7.0 x 5.4 x 2.8 cm in aggregate. Regional Operations Director sections are submitted in cassette (A1). B. The specimen, labeled "TG," and designated on the requisition "additional subcutaneous tissue," is received in formalin and consists of a fibrofatty tissue fragment measuring 9.5 x 4.5 x 2.3 cm. Plastic mesh material is not grossly identified. Regional Operations Director sections are submitted in cassette (B1). AT (under the direct supervision of a pathologist) The Gross Description was prepared using a voice recognition system. The report was reviewed for accuracy; however, sound-alike word errors, addition and/or deletions may occur. If there is any PATIENT NAME: DREW WHEATLEY PATHOLOGY DATE OF : 59 REPORT #: [id number] PHYSICIAN: LESLEY FOY PCP: BETTY THOMPSON MD REPORT IS CONFIDENTIAL AND NOT TO BE RELEASED WITHOUT AUTHORIZATION [facility] [address] [place] [address] Signed question about this report, please contact Client Services. PERFORMING LABORATORY: The technical component was [place] [address] (Straight Tooth Gear Generator Operator: Indy Gutierrez MD; CLIA# [id number]). [facility], [address] [place] [id number] (CLIA# [id number]). Diagnostician: Mukul Thomson MD Pathologist Electronically Signed 03/17/2021 Copies: ~ PATIENT NAME: DREW WHEATLEY PATHOLOGY DATE OF : 59 REPORT #: [id number] PHYSICIAN: LESLEY FOY PCP: BETTY THOMPSON MD REPORT IS CONFIDENTIAL AND NOT TO BE RELEASED WITHOUT AUTHORIZATION
--- NOTE | 2021-03-26 10:35 | OR ---
[facility] [address] [place], [place] [address] Signed DATE OF OPERATION: 03/16/2021 SURGEON: Esdras Santoyo MD PREOPERATIVE DIAGNOSES: 1. Recurrent draining infected sinus, right inguinal area (multiple recurrences). 2. History of right inguinal hernia repair with implantation of Prolene mesh (Dr. oLbato in 2005). 3. Multiple episodes of recurrent abscess requiring explantation of Prolene mesh, debridement, etc. 4. Diabetes mellitus. POSTOPERATIVE DIAGNOSES: Dense cicatrix with associated infected sinus extending to floor of inguinal canal. Remnant of mesh noted in inguinal canal extending to internal ring. PROCEDURES: 1. Debridement and excision of soft tissue including infected sinus (prolonged, complicated, and difficult). 2. Explantation of infected mesh. 3. Plication of floor and ring with absorbable PDS suture for inguinal floor reconstruction. ANESTHESIA: General endotracheal; Esdras Becker CRNA. INDICATIONS: This 66-year-old white man, underwent right inguinal hernia repair by Dr. Bo Lobato in 2005, implantation of mesh was undertaken. I saw him sometime after that and he had an acute infection of the groin. Copious amounts of purulence were noted. Portions of mesh were explanted. Since that time, he has had recurrent bouts of infection requiring drainage, additional debridement, and explantation of portions of mesh. He had gone nearly 2 years, having had no further symptoms, but began having erythema and inflammation in the medial aspect to the right groin incision. He underwent incision and drainage, curettage, debridement, and placement of a knotted yellow vessel loop. This allowed for persistent drainage and apparent resolution ultimately. It was not thought that there was mesh remained in the wound at that time, at least not to any great extent. The yellow vessel loop was finally removed after being in place for a number of weeks and he healed this up, but then had recurrent purulent drainage. Examination shows no sign of well-formed abscess. No erythema particularly, but Electronically Signed By: ESDRAS SANTOYO MD 03/26/21 1035 PATIENT NAME: DREW WHEATLEY OPERATIVE REPORT DATE OF : 59 REPORT #: [id number] PHYSICIAN: ESDRAS SANTOYO MD PCP: BETTY THOMPSON MD REPORT IS CONFIDENTIAL AND NOT TO BE RELEASED WITHOUT AUTHORIZATION [facility] [address] [place], [place] [address] Signed purulent drainage from a sinus in the midportion of the right groin wound. I have recommended exploration of the wound, debridement, and if able explantation of residual foreign body material, possibly to include suture or even mesh. The risks of bleeding, infection, of course, recurrent problem were reviewed with the patient and he understands and wished to proceed. FINDINGS: Indeed a chronically inflamed and infected sinus was noted to extend through the subcutaneous tissue into the depths of the wound into the floor of the inguinal canal. Wide resection of this tissue was undertaken with meticulous dissection free of the spermatic cord. Explantation of mesh in the floor of the canal was undertaken and most dominantly in the more proximal (lateral) portion near the spermatic cord at the internal ring. There remained some areas of dense fibrosis that no doubt has mesh in it, but did not appear infected. The remaining floor of the canal was reapproximated with absorbable suture, likely to reliant fibrosis, which should be significant. Additionally, soft tissue surrounding the wound itself was excised as there was chronic inflammatory appearance to it. A drain was placed. DESCRIPTION OF PROCEDURE: The patient was brought to the operating room, given a general endotracheal anesthetic. Preoperative antibiotic Ancef was given. Sequential compression device stockings were used. The lower abdomen was clipped and prepared with a chlorhexidine solution and draped sterilely. A chronic inflammatory sinus was noted in the midportion of a right groin incision. This was probed with a hemostat and did not have a well-formed tract of great size. On that basis, elliptical incision was undertaken in that portion of the wound and dissection was carried through the subcutaneous tissue following the inflammatory tract to the depths of the wound. It was moderately obese and refers a fair amount of tissue and a very impressively well formed amount of scar tissue. The actual location of the spermatic cord was not immediately noted, but dissection was carried down to the depths of the inguinal canal, found to extend to marked inflammatory tissue. Cultures were obtained at the outset of the operation. Dissection was undertaken excising any fibrotic tissue associated with the sinus tract and clearly, there was retained mesh in the floor of the canal. This was dissected free from a [id number] direction. Meticulous care was maintained in dissecting near the cord, so as to avoid devascularization. One small artery likely associated with spermatic cord was partially transected and was repaired with a 7-0 vascular Prolene suture as was its accompanying vein. I doubt that this vessel was the sole source of testicular blood flow, but it was repaired nevertheless mindful of his multiple episodes of exploration within the groin. Further dissection was undertaken more proximally. The mesh appeared to be emanating from the area of the internal ring and with exquisite care so as to avoid injury to Electronically Signed By: ESDRAS SANTOYO MD 03/26/21 1035 PATIENT NAME: DREW WHEATLEY OPERATIVE REPORT DATE OF : 59 REPORT #: [id number] PHYSICIAN: ESDRAS SANTOYO MD PCP: BETTY THOMPSON MD REPORT IS CONFIDENTIAL AND NOT TO BE RELEASED WITHOUT AUTHORIZATION [facility] [address] [place], [place] [address] Signed underlying major vessels (iliac vein or artery). Dissection was undertaken ultimately extracting the additional mesh. Further dissection revealed other bits of mesh. It appeared to be deeply insinuated in the properitoneal space. At conclusion, all gross amounts of fibrous mesh had been removed, although I am sure there were some remnants that are densely adherent to scar tissue. Irrigation was undertaken. As there was appeared to be a defect in the floor of the canal by this point, plication of the tendon of the transversus abdominis to the shelving edge of the inguinal ligament was undertaken with interrupted 0 PDS absorbable suture. Irrigation was undertaken more fully. The skin edges and subcutaneous tissue were excised with electrocautery. Hemostasis assured. Through a separate stab incision, a 7 mm flat Carmelo was placed into the depths of the canal. The spermatic cord had been preserved and although with a fair amount of scar tissue appeared to be well preserved with its vascular supply. A syringe of Tisseel fibrin glue was applied to the soft tissue as the extent of dissection was quite extensive. Kinjal's layer was reapproximated with interrupted 2-0 Vicryl and skin closed with running subcuticular 3-0 Vicryl. Steri-Strips were applied as was an Acticoat dressing. The drain was attached to bulb suction after being secured the skin with nylon suture. The operation was prolonged, complicated, and difficult lasting several hours and far more extensive than had been anticipated. MD SRIDHAR Cornell/MODL /[id number] cc: [place], [place] Copies: ~ Electronically Signed By: ESDRAS SANTOYO MD 03/26/21 1035 PATIENT NAME: DREW WHEATLEY OPERATIVE REPORT DATE OF : 59 REPORT #: [id number] PHYSICIAN: ESDRAS SANTOYO MD PCP: BETTY THOMPSON MD REPORT IS CONFIDENTIAL AND NOT TO BE RELEASED WITHOUT AUTHORIZATION
== END 2021-03-16 14:05 | disposition home or self-care (01) ==
LOC: DS 07:11
PROVIDERS: ATTEND Surgery
PROC: 0YQ50ZZ Repair Right Inguinal Region, Open Approach (ICD-10-PCS; 2021-03-16)
PROC: 0JPT0YZ Removal of Other Device from Trunk Subcutaneous Tissue and Fascia, Open Approach (ICD-10-PCS; principal; 2021-03-16 08:10)
DX: T85.79XA Infection and inflammatory reaction due to other internal prosthetic devices, implants and grafts, initial encounter (principal); T81.83XA Persistent postprocedural fistula, initial encounter; L98.8 Other specified disorders of the skin and subcutaneous tissue; K40.90 Unilateral inguinal hernia, without obstruction or gangrene, not specified as recurrent; K57.32 Diverticulitis of large intestine without perforation or abscess without bleeding; E11.9 Type 2 diabetes mellitus without complications; E66.9 Obesity, unspecified; Z88.1 Allergy status to other antibiotic agents; Z79.82 Long term (current) use of aspirin; Z79.4 Long term (current) use of insulin; Z85.46 Personal history of malignant neoplasm of prostate; Z68.38 Body mass index [BMI] 38.0-38.9, adult; Z87.891 Personal history of nicotine dependence
CPT/HCPCS: 00830; J0690; J1100; J1644; J2250; J7121